=== PATIENT | female | born 2000 | race Caucasian/White ===

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

== ENCOUNTER 2019-01-13 14:32 | Emergency (ER) | payer OTHER ==
--- OUTSIDE RECORDS SUMMARY | 2019-01-13 14:34 | XMS REPORT ---
:2000 [facility] Address [address] [place] [address] Dr. King [address] [place] [id number] Care Team Providers Name Role Phone Unavailable Unavailable Unavailable Problems This patient has no known problems. Allergies, Adverse Reactions, Alerts This patient has no known allergies or adverse reactions. Medications This patient has no known medications.
[2019-01-13] MEDS ORDERED: IBUPROFEN 200 MG TAB PO ONE (15:46)
[2019-01-13] MEDS ORDERED: DEXAMETHASONE 10 MG/ML VIAL ONE (15:46)
[2019-01-13] MEDS ORDERED: DIPHENHYDRAMINE 25 MG TAB/CAP ONE (15:46)
[2019-01-13] MEDS ORDERED: IBUPROFEN 400 MG TAB ONE (15:46)
[2019-01-13] MEDS ORDERED: FAMOTIDINE 20 MG TAB ONE (15:47)
--- NOTE | 2019-01-13 16:22 | ER ---
Nurse's Notes [facility] Name: Evelin Biggs Age: 18 yrs Sex: Female : 2000 Arrival Date: 01/13/2019 Time: 14:33 Bed 28 Private MD: Diagnosis: Insect bite (nonvenomous) of unspecified part of head Presentation: 01/13 15:10 Presenting complaint: Patient states: stung by a wasp or hornet 4- days ago. applied rv ice pack and took Benadryl. today, it got worse upon waking up. could not open eyes and vision is blurry. Transition of care: patient was not received from another setting of care. Onset: The symptoms/episode began/occurred today. Anaphylaxis evaluation, reports nausea w/o vomiting. Onset of symptoms was January 13, 2019 at 08:00. Risk Assessment: Do you want to hurt yourself or someone else? Patient reports no desire to harm self or others. Initial Sepsis Screen: Does the patient meet any 2 criteria? No. Patient's initial sepsis screen is negative. Does the patient have a suspected source of infection? No. Patient's initial sepsis screen is negative. Care prior to arrival: None. 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 - Social history:: Smoking status: Patient/guardian denies using tobacco, Patient uses vape. - Ebola Screening: : No symptoms or risks identified at this time. Screenin:20 Abuse screen: Denies threats or abuse. Denies injuries from another. Nutritional rv screening: No deficits noted. Tuberculosis screening: No symptoms or risk factors identified. Fall Risk None identified. Assessment: 15:18 General: Appears in no apparent distress. uncomfortable, Behavior is calm, cooperative. rv Pain: Complains of pain in right eye. Neuro: Level of Consciousness is awake, alert, obeys commands, Oriented to person, place, time, situation. Cardiovascular: Patient's skin is warm and dry. Respiratory: Airway is patent Respiratory effort is even, Breath sounds are clear bilaterally. GI: No signs and/or symptoms were reported involving the gastrointestinal system. : No signs and/or symptoms were reported regarding the genitourinary system. EENT: Reports blurred vision in right eye. Derm: Skin is intact. Musculoskeletal: Swelling present in right eye. Vital Signs: 15:17 BP 124 / 84; Pulse 87; Resp 17; Temp 98.7; Pulse Ox 100% ; Weight 56.7 kg; Height 5 ft. rv 9 in. (175.26 cm); 16:14 BP 117 / 82; Pulse 78; Resp 17; Temp 98.6; Pulse Ox 100% ; rv 15:17 Body Mass Index 18.46 (56.70 kg, 175.26 cm) rv ED Course: 14:33 Patient arrived in ED. as 15:00 Eber Loja, CHRISTIAN is Primary Nurse. rv 15:08 Francisco Ochoa NP is PHCP. pm1 15:08 Marcus Dash MD is Attending Physician. pm1 15:12 Triage completed. rv 15:45 Bed in low position. Call light in reach. Side rails up X 1. Adult w/ patient. rv 15:45 Pulse ox on. NIBP on. rv 16:15 Arm band placed on right wrist. rv 16:15 No provider procedures requiring assistance completed. Patient did not have IV access rv during this emergency room visit. Administered Medications: 15:36 Drug: Decadron 10 mg Route: IM; Site: left deltoid; rv 16:28 Follow up: Response: Marked relief of symptoms rv 15:36 Drug: Benadryl 25 mg Route: PO; rv 16:28 Follow up: Response: Marked relief of symptoms rv 15:36 Drug: Pepcid 20 mg Route: PO; rv 16:28 Follow up: Response: Marked relief of symptoms rv 15:36 Drug: Ibuprofen 600 mg Route: PO; rv 16:28 Follow up: Response: Marked relief of symptoms rv Outcome: 16:15 Discharged to home ambulatory. rv 16:15 Condition: improved 16:19 Discharge ordered by . pm1 16:23 Discharge instructions given to patient, Instructed on discharge instructions, follow rv up and referral plans. medication usage, Demonstrated understanding of instructions, follow-up care, medications, Prescriptions given X 4. 16:28 Patient left the ED. rv Signatures: Meaghan Vera Patrick, SUPERVISOR INVENTORY MERCHANDISING SUPERVISOR INVENTORY MERCHANDISING pm1 Eber Loja, RN RN rv
--- NOTE | 2019-01-13 16:22 | EDPHYS ---
Physician Documentation [facility] Name: Evelin Biggs Age: 18 yrs Sex: Female : 2000 Arrival Date: 01/13/2019 Time: 14:33 Bed 28 Private MD: ED Physician Marcus Dash HPI: 01/13 15:20 This 18 yrs old Female presents to ER via Ambulatory with complaints of Bee pm1 Sting, Eye Swelling. 15:20 by a wasp, at home. Onset: The symptoms/episode began/occurred 4 day(s) ago. Secondary pm1 to the bite the patient reports pain, swelling. Associated signs and symptoms: Pertinent negatives: fever. Severity of symptoms: in the emergency department the symptoms are unchanged. The patient has not experienced similar symptoms in the past. The patient has not recently seen a physician. Patient with wasp sting to right side of evangelical with some swelling present to right periorbital area. 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 - Social history:: Smoking status: Patient/guardian denies using tobacco, Patient uses vape. - Ebola Screening: : No symptoms or risks identified at this time. ROS: 15:20 Constitutional: Negative for fever, chills, and weight loss. pm1 15:20 ENT: Negative for injury, pain, and discharge, Neck: Negative for injury, pain, and swelling, Cardiovascular: Negative for chest pain, palpitations, and edema, Respiratory: Negative for shortness of breath, cough, wheezing, and pleuritic chest pain, Abdomen/GI: Negative for abdominal pain, nausea, vomiting, diarrhea, and constipation, Back: Negative for injury and pain, : Negative for injury, bleeding, discharge, and swelling, MS/Extremity: Negative for injury and deformity, Skin: Negative for injury, rash, and discoloration, Neuro: Negative for headache, weakness, numbness, tingling, and seizure. 15:20 Eyes: Positive for pain, swelling, of the right eye. Exam: 15:20 Constitutional: This is a well developed, well nourished patient who is awake, alert, pm1 and in no acute distress. Head/Face: Normocephalic, atraumatic. 15:20 ENT: Nares patent. No nasal discharge, no septal abnormalities noted. Tympanic membranes are normal and external auditory canals are clear. Oropharynx with no redness, swelling, or masses, exudates, or evidence of obstruction, uvula midline. Mucous membranes moist. Neck: Trachea midline, no thyromegaly or masses palpated, and no cervical lymphadenopathy. Supple, full range of motion without nuchal rigidity, or vertebral point tenderness. No Meningismus. Chest/axilla: Normal chest wall appearance and motion. Nontender with no deformity. No lesions are appreciated. Cardiovascular: Regular rate and rhythm with a normal S1 and S2. No gallops, murmurs, or rubs. Normal PMI, no JVD. No pulse deficits. Respiratory: Lungs have equal breath sounds bilaterally, clear to auscultation and percussion. No rales, rhonchi or wheezes noted. No increased work of breathing, no retractions or nasal flaring. Back: No spinal tenderness. No costovertebral tenderness. Full range of motion. Skin: Warm, dry with normal turgor. Normal color with no rashes, no lesions, and no evidence of cellulitis. MS/ Extremity: Pulses equal, no cyanosis. Neurovascular intact. Full, normal range of motion. 15:20 Eyes: Periorbital structures: cellulitis, is not appreciated, erythema, is not appreciated, swelling, that is mild, on the right supraorbital ridge, right upper eyelid and right lower eyelid, Pupils: equal, round, and reactive to light and accomodation, Extraocular movements: intact throughout, Conjunctiva: normal, no chemosis, no exudate, no injection, no subconjunctival hemorrhage no abnormal tearing. 15:20 Neuro: Orientation: is normal, Motor: is normal, moves all fours, Gait: is steady, at a normal pace, without difficulty. Vital Signs: 15:17 BP 124 / 84; Pulse 87; Resp 17; Temp 98.7; Pulse Ox 100% ; Weight 56.7 kg; Height 5 ft. rv 9 in. (175.26 cm); 16:14 BP 117 / 82; Pulse 78; Resp 17; Temp 98.6; Pulse Ox 100% ; rv 15:17 Body Mass Index 18.46 (56.70 kg, 175.26 cm) rv MDM: 15:16 Patient medically screened. pm1 16:17 Data reviewed: vital signs. Data interpreted: Pulse oximetry: on room air is 100 %. pm1 Interpretation: normal. Counseling: I had a detailed discussion with the patient and/or guardian regarding: the historical points, exam findings, and any diagnostic results supporting the discharge/admit diagnosis, the need for outpatient follow up, to return to the emergency department if symptoms worsen or persist or if there are any questions or concerns that arise at home. 16:17 Medication response: patient with marked resolution of swelling with medications given pm1 in the ER. Patient able to open right eye without any difficulty. Administered Medications: 15:36 Drug: Decadron 10 mg Route: IM; Site: left deltoid; rv 16:28 Follow up: Response: Marked relief of symptoms rv 15:36 Drug: Benadryl 25 mg Route: PO; rv 16:28 Follow up: Response: Marked relief of symptoms rv 15:36 Drug: Pepcid 20 mg Route: PO; rv 16:28 Follow up: Response: Marked relief of symptoms rv 15:36 Drug: Ibuprofen 600 mg Route: PO; rv 16:28 Follow up: Response: Marked relief of symptoms rv Disposition: 16:54 Co-signature as Attending Physician, Marcus Dash MD. rn Disposition: 01/13/19 16:19 Discharged to Home. Impression: Insect bite (nonvenomous) of unspecified part of head. - Condition is Stable. - Discharge Instructions: Insect Bite. - Prescriptions for Benadryl 25 mg Oral Capsule - take 1 capsule by ORAL route every 6 hours As needed; 30 tablet. Pepcid 20 mg Oral Tablet - take 1 tablet by ORAL route every 12 hours for 10 days; 20 tablet. Medrol (Arslan) 4 mg Oral Tablets, Dose Pack - take 1 tablet by ORAL route as directed - follow package instructions; 1 packet. Bactrim DS 800- 160 mg Oral Tablet - take 1 tablet by ORAL route every 12 hours for 10 days; 20 tablet. - Medication Reconciliation Form, Thank You Letter, Antibiotic Education, Prescription Opioid Use form. - Follow up: Emergency Department; When: As needed; Reason: Worsening of condition. Follow up: Private Physician; When: 2 - 3 days; Reason: Recheck today's complaints, Continuance of care, Re-evaluation by your physician. - Problem is new. - Symptoms have improved. Signatures: Marcus Dash MD MD rn Francisco Ochoa NP AGRICULTURE SCIENCE TEACHER pm1 Eber Loja RN RN rv Corrections: (The following items were deleted from the chart) 16:28 16:19 01/13/2019 16:19 Discharged to Home. Impression: Insect bite (nonvenomous) of rv unspecified part of head. Condition is Stable. Forms are Medication Reconciliation Form, Thank You Letter, Antibiotic Education, Prescription Opioid Use. Follow up: Emergency Department; When: As needed; Reason: Worsening of condition. Follow up: Private Physician; When: 2 - 3 days; Reason: Recheck today's complaints, Continuance of care, Re-evaluation by your physician. Problem is new. Symptoms have improved. pm1
== END 2019-01-13 16:28 | disposition home or self-care (01) ==
LOC: ER 14:32
DX: S00.86XA Insect bite (nonvenomous) of other part of head, initial encounter (principal); F32.9 Major depressive disorder, single episode, unspecified; F41.9 Anxiety disorder, unspecified; F90.9 Attention-deficit hyperactivity disorder, unspecified type; Z88.5 Allergy status to narcotic agent
CPT/HCPCS: 96372; 99283; J1100

== ENCOUNTER 2019-04-22 22:26 | Emergency (ER) | payer OTHER ==
[2019-04-22 23:49] LABS: Urine Blood NEGATIVE (NEG); Urine Glucose NEGATIVE (NEG); Urine Protein NEGATIVE (NEG)
[2019-04-22 23:58] LABS: Absolute Lymphocytes (CBC) 2.6 K/uL (0.7-4.9); Basophils % 0.9 % (0-1.3); Hematocrit 39.5 % (36.0-45.0); Lymphocytes % 35.9 % (15.3-44.8); MPV 7.9 fL (7.6-11.3); RBC Red Blood Cell Count 4.69 M/uL (3.86-4.86)
[2019-04-23 00:03] LABS: Barbiturates NEGATIVE (NEGATIVE); Benzodiazepines NEGATIVE (NEGATIVE); Cocaine NEGATIVE (NEGATIVE); METHAMPHETAM NEGATIVE (NEGATIVE); Methadone NEGATIVE (NEGATIVE); Opiates NEGATIVE (NEGATIVE); Phencyclidine NEGATIVE (NEGATIVE); THC Cannibis NEGATIVE (NEGATIVE)
[2019-04-23 00:09] LABS: Protime INR 1.05
[2019-04-23 00:18] LABS: ALT/SGPT 23 U/L (12-78); AST/SGOT 16 U/L (15-37); Albumin 4.6 g/dL (3.4-5.0); Alkaline Phosphatase 54 U/L (45-117); BUN Blood Urea Nitrogen 6 mg/dL (7-18); Bicarbonate 25 mmol/L (21-32); Bilirubin Direct 0.3 mg/dL (0-0.2); Bilirubin Total 1.4 mg/dL (0.2-1.0); CKMB Creatine Kinase MB < 1.0 ng/mL (0.3-3.6); Creatine Phosphokinase 71 U/L (26-192); Glucose Level 89 mg/dL (74-106); Lipase 135 U/L (73-393); Magnesium 2.2 mg/dL (1.8-2.4); Potassium 3.6 mmol/L (3.5-5.1); Protein, Total 7.5 g/dL (6.4-8.2); Sodium Level 141 mmol/L (136-145); Troponin (Emerg Dept Use Only) < 0.02 ng/mL (0.0-0.045)
[2019-04-23] MEDS ORDERED: KETOROLAC 30 MG/ML INJ ONE (00:31)
--- NOTE | 2019-04-23 01:13 | ER ---
Nurse's Notes [facility] Name: Evelin Biggs Age: 18 yrs Sex: Female : 2000 Arrival Date: 04/22/2019 Time: 22:29 Bed 7 Private MD: Diagnosis: Syncope and collapse Presentation: 04/22 22:41 Presenting complaint: Patient states: that he was lying down and started feeling weak. fc When she got up she started to have a headache and fainted. Now having photophobia but denies any nausea or vomiting. Transition of care: patient was not received from another setting of care. Onset of symptoms was April 22, 2019 at 21:30. Risk Assessment: Do you want to hurt yourself or someone else? Patient reports no desire to harm self or others. Initial Sepsis Screen: Does the patient meet any 2 criteria? No. Patient's initial sepsis screen is negative. Does the patient have a suspected source of infection? No. Patient's initial sepsis screen is negative. Care prior to arrival: None. 22:41 Method Of Arrival: Ambulatory 22:41 Acuity: CALI 3 fc Triage Assessment: 22:59 Headache History: Denies prior headaches. General: Appears in no apparent distress. ak1 Pain: Complains of pain in forehead. 04/23 01:08 Pain: Pain began yesterday with worse headache tonight. 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 - Social history:: Smoking status: Patient/guardian denies using tobacco, Patient/guardian denies using alcohol, street drugs. - Ebola Screening: : Patient negative for fever greater than or equal to 101.5 degrees Fahrenheit, and additional compatible Ebola Virus Disease symptoms Patient denies exposure to infectious person Patient denies travel to an Ebola-affected area in the 21 days before illness onset. Screenin:41 Abuse screen: Denies threats or abuse. Nutritional screening: No deficits noted. fc Tuberculosis screening: No symptoms or risk factors identified. Fall Risk None identified. Assessment: 22:54 Reassessment: pt taken to restroom, unable to provide sample at this time.. General: ak1 Appears in no apparent distress. Behavior is calm, cooperative, flat. Pain: Complains of pain in forehead. Neuro: Level of Consciousness is awake, alert, obeys commands, Oriented to person, place, time, situation, Appropriate for age Moves all extremities. Full function Gait is pt c/o generalized weakness since yesterday with fatigue increased today. . Speech is normal, Facial symmetry appears normal. Cardiovascular: No deficits noted. Respiratory: No deficits noted. GI: No signs and/or symptoms were reported involving the gastrointestinal system. : Reports pt on day 2 of cycle. EENT: No signs and/or symptoms were reported regarding the EENT system. Derm: No signs and/or symptoms reported regarding the dermatologic system. Musculoskeletal: Range of motion: intact in all extremities, pt c/o generalized weakness an fatigue stated yesterday, worse today. pt c/o headache tonight at forehead area only. pt denies fever, SOB, N/V/D. 23:57 Reassessment: Patient appears in no apparent distress at this time. No changes from ak1 previously documented assessment. pt in CT. Vital Signs: 22:41 BP 151 / 99; Pulse 75; Resp 18; Temp 99.0(O); Pulse Ox 100% on R/A; Weight 53.52 kg fc (R); Height 5 ft. 9 in. (175.26 cm) (R); Pain 8/10; 23:12 BP 133 / 95; Pulse 72; Pulse Ox 100% on R/A; ak1 04/23 01:07 BP 124 / 83; Pulse 65; Resp 16; Pulse Ox 100% on R/A; ak1 04/22 22:41 Body Mass Index 17.43 (53.52 kg, 175.26 cm) Kian Coma Score: 01:59 Eye Response: spontaneous(4). Verbal Response: oriented(5). Motor Response: obeys tw4 commands(6). Total: 15. ED Course: 04/22 22:29 Patient arrived in ED. cl3 22:41 Arm band placed on Patient placed in an exam room, on a stretcher. fc 22:41 Patient has correct armband on for positive identification. Placed in gown. Bed in low fc position. Call light in reach. 22:43 Lucila Payan, RN is Primary Nurse. ak1 22:50 Glenn Islas MD is Attending Physician. tw4 22:51 Triage completed. fc 22:54 Pulse ox on. NIBP on. Door closed. Lights dimmed. Warm blanket given. ak1 23:53 Inserted saline lock: 20 gauge in right antecubital area, using aseptic technique. sc Blood collected. 1007 00:25 CT Head Brain wo Cont In Process Unspecified. EDMS 01:29 No provider procedures requiring assistance completed. IV discontinued, intact, ak1 bleeding controlled, No redness/swelling at site. Pressure dressing applied. Administered Medications: 00:36 Drug: TORadol 30 mg Route: IVP; Site: right antecubital; don 01:29 Follow up: Response: No adverse reaction; Pain is unchanged, physician notified ak1 Outcome: 01:12 Discharge ordered by . tw4 01:30 Discharged to home ambulatory, with friend. ak1 01:30 Condition: improved 01:30 Discharge instructions given to patient, Instructed on discharge instructions, follow up and referral plans. no drinking with medication, no driving heavy equipment, medication usage, Demonstrated understanding of instructions, follow-up care, medications, Prescriptions given X 1. 01:30 Patient left the ED. ak1 Signatures: Dispatcher [employer] EDPR Leni Romero RN RN Amena Madrigal RN RN Lucila Payan, RN Daphnie Wheeler sc Glenn Islas MD MD Sherif Paris 3
--- NOTE | 2019-04-23 01:14 | EDPHYS ---
Physician Documentation [facility] Name: Evelin Biggs Age: 18 yrs Sex: Female : 2000 Arrival Date: 04/22/2019 Time: 22:29 Bed 7 Private MD: ED Physician Glenn Islas HPI: 04/23 00:03 This 18 yrs old Female presents to ER via Ambulatory with complaints of tw4 Headache, Weakness. 00:03 The patient complains of pain to the forehead. Onset: The symptoms/episode tw4 began/occurred today. Associated signs and symptoms: The patient has no apparent associated signs or symptoms. 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 - Social history:: Smoking status: Patient/guardian denies using tobacco, Patient/guardian denies using alcohol, street drugs. - Ebola Screening: : Patient negative for fever greater than or equal to 101.5 degrees Fahrenheit, and additional compatible Ebola Virus Disease symptoms Patient denies exposure to infectious person Patient denies travel to an Ebola-affected area in the 21 days before illness onset. ROS: 04/23 00:47 Constitutional: Negative for fever, chills, and weight loss, Eyes: Negative for injury, tw4 pain, redness, and discharge, Cardiovascular: Negative for chest pain, palpitations, and edema, Respiratory: Negative for shortness of breath, cough, wheezing, and pleuritic chest pain, Abdomen/GI: Negative for abdominal pain, nausea, vomiting, diarrhea, and constipation, Back: Negative for injury and pain, MS/Extremity: Negative for injury and deformity, Skin: Negative for injury, rash, and discoloration. Neuro: Positive for Vital Signs: 04/22 22:41 BP 151 / 99; Pulse 75; Resp 18; Temp 99.0(O); Pulse Ox 100% on R/A; Weight 53.52 kg fc (R); Height 5 ft. 9 in. (175.26 cm) (R); Pain 8/10; 23:12 BP 133 / 95; Pulse 72; Pulse Ox 100% on R/A; ak1 04/23 01:07 BP 124 / 83; Pulse 65; Resp 16; Pulse Ox 100% on R/A; ak1 04/22 22:41 Body Mass Index 17.43 (53.52 kg, 175.26 cm) Kian Coma Score: 01:59 Eye Response: spontaneous(4). Verbal Response: oriented(5). Motor Response: obeys tw4 commands(6). Total: 15. MDM: 04/22 22:50 Patient medically screened. tw4 04/23 01:59 Data reviewed: vital signs, nurses notes. Data interpreted: Pulse oximetry: tw4 Interpretation: normal. Counseling: I had a detailed discussion with the patient and/or guardian regarding: the historical points, exam findings, and any diagnostic results supporting the discharge/admit diagnosis. Medication response: Toradol relieved patient's pain. The symptoms have resolved. Response to treatment: and as a result, I will discharge patient. Special discussion: I discussed with the patient/guardian in detail that at this point there is no indication for admission to the hospital. It is understood, however, that if the symptoms persist or worsen the patient needs to return immediately for re-evaluation. 04/22 23:43 Order name: Urine Dipstick--Ancillary (enter results); Complete Time: 00:29 em1 04/23 01:15 Interpretation: Normal except: UESTR TRACE. tw4 04/22 23:43 Order name: Urine --Ancillary (enter results); Complete Time: 00:29 em1 04/22 23:45 Order name: Basic Metabolic Panel; Complete Time: 00:29 tw4 04/23 01:15 Interpretation: Normal except: CL 108; BUN 6; GFR 81. tw4 04/22 23:45 Order name: CBC with Diff; Complete Time: 00:29 tw4 04/23 01:16 Interpretation: Normal except: WBC 7.3; PLT 253. tw4 04/22 23:45 Order name: Ckmb; Complete Time: 00:29 tw4 04/22 23:45 Order name: CPK; Complete Time: 00:29 4 04/22 23:45 Order name: CT Head Brain wo Cont 04/22 23:45 Order name: Hepatic Function; Complete Time: 00:29 4 04/23 01:16 Interpretation: Normal except: BILIT 1.4; BILID 0.3. 04/22 23:45 Order name: Lipase; Complete Time: 00:29 4 04/22 23:45 Order name: Magnesium; Complete Time: 00:29 04/22 23:45 Order name: Protime (+inr); Complete Time: 00:29 4 04/22 23:45 Order name: Ptt, Activated; Complete Time: 00:29 04/22 23:45 Order name: Troponin (emerg Dept Use Only); Complete Time: 00:29 04/22 23:45 Order name: Urine Drug Screen; Complete Time: 00:29 4 04/22 23:45 Order name: EKG; Complete Time: 23:46 04/22 23:45 Order name: Cardiac monitoring; Complete Time: 23:57 04/22 23:45 Order name: EKG - Nurse/Tech; Complete Time: 23:57 04/22 23:45 Order name: IV Saline Lock; Complete Time: 23:52 04/22 23:45 Order name: Labs collected and sent; Complete Time: 23:52 04/22 23:45 Order name: NPO; Complete Time: 23:46 4 04/22 23:45 Order name: O2 Per Protocol; Complete Time: 23:46 04/22 23:45 Order name: O2 Sat Monitoring; Complete Time: 23:46 04/22 23:45 Order name: Urine Dipstick-Ancillary (obtain specimen); Complete Time: 23:46 tw4 EC/06 23:59 Rate is 70 beats/min. Rhythm is regular. QRS Gillespie is Normal. CO interval is normal. QRS tw4 interval is normal. QT interval is normal. No Q waves. T waves are Normal. No ST changes noted. Clinical impression: NSR w/ Non-specific ST/T Changes. Interpreted by me. Reviewed by me. Administered Medications: 04/23 00:36 Drug: TORadol 30 mg Route: IVP; Site: right antecubital; bb 01:29 Follow up: Response: No adverse reaction; Pain is unchanged, physician notified ak1 Disposition: 04/23/19 01:12 Discharged to Home. Impression: Syncope and collapse. - Condition is Stable. - Discharge Instructions: General Headache Without Cause, Near-Syncope, Vasovagal Syncope, Adult. - Prescriptions for Fiorinal 50- 325-40 mg Oral Capsule - take 1 capsule by ORAL route every 4 hours As needed - not to exceed 6 capsules per day; 20 capsule. - Medication Reconciliation Form, Thank You Letter, Antibiotic Education, Prescription Opioid Use form. - Follow up: Private Physician; When: Upon discharge from the Emergency Department; Reason: If symptoms return, Recheck today's complaints, Continuance of care. - Problem is new. - Symptoms have improved. Signatures: Dispatcher [employer] EDMS Leni Romero RN RN fc Amena Madrigal RN RN Lucila Shell RN RN ak1 Michael Spivey PA PA cp Wadley, Terrence, MD MD tw4 Corrections: (The following items were deleted from the chart) 01:30 01:12 04/23/2019 01:12 Discharged to Home. Impression: Syncope and collapse. Condition ak1 is Stable. Forms are Medication Reconciliation Form, Thank You Letter, Antibiotic Education, Prescription Opioid Use. Follow up: Private Physician; When: Upon discharge from the Emergency Department; Reason: If symptoms return, Recheck today's complaints, Continuance of care. Problem is new. Symptoms have improved. tw4
[2019-04-23 02:11] VITALS: TEMP 99; O2SAT 100
[2019-04-23 02:14] VITALS: BP 124/83
--- NOTE | 2019-04-23 09:42 | EKG ---
Test Date: 2019-04-22 Test Time: 23:54:18 Taxonomist: ALMA ROSA MEASUREMENT RESULTS: Intervals: Rate: 70 WA: 102 QRSD: 76 QT: 370 QTc: 399 [place]: P: 11 WA: 102 QRS: 54 T: 56 INTERPRETIVE STATEMENTS: Sinus rhythm with short WA normal ECG No previous ECG available for comparison Electronically Signed On 04-23-19 09:42:17 CDT by Maciel Monge
--- NOTE | 2019-04-24 15:31 | RAD REPORT ---
EXAM DESCRIPTION: CT - Head Brain Wo Cont - 04/23/2019 3:53 am CLINICAL HISTORY: SYNCOPE COMPARISON: CT head without contrast 06/24/2014. TECHNIQUE: Axial [address] imaging of the brain. Reformatted coronal and sagittal images ob tained. This examination was performed according to our departmental dose optimization program, which include s automated exposure control, adjustment of the mA and/or kV according to patient size and/or use of iterative reconstruction technique. FINDINGS: Normal ventricle size and contour. Extra-axial fluid spaces appear normal. Carpenter-white yaniv er differentiation is maintained. No edema, mass, hemorrhage, or midline shift. Normal appearance of the corpus callosum and midbrain. Normal cerebellum, vermis, fourth ventricle, prepontine cisterns. N ormal sella contents. The globes appear intact. Clear paranasal sinuses and mastoid air cells. Intact skull base and calvar ium. Normal scalp soft tissues. IMPRESSION: 1. Negative CT brain. Electronically signed by: Cristine Noonan DO 04/23/2019 12:29 AM CDT Due to temporary technical issues with the PACS/Fluency reporting system, reports are being signed by the in house radiologist as a courtesy to ensure prompt reporting. The interpreting radiologist is f ully responsible for the content of the report.
== END 2019-04-23 01:30 | disposition home or self-care (01) ==
LOC: ER 22:26
DX: R55 Syncope and collapse (principal); F32.9 Major depressive disorder, single episode, unspecified; F41.9 Anxiety disorder, unspecified; F90.9 Attention-deficit hyperactivity disorder, unspecified type; Z88.5 Allergy status to narcotic agent
CPT/HCPCS: 36415; 70450; 80048; 80076; 80307; 81003; 81025; 82550; 82553; 83690; 83735; 84484; 85025; 85610; 85730; 93005; 96374; 99284

== ENCOUNTER 2019-04-26 18:13 | Emergency (ER) | payer OTHER ==
[2019-04-26] MEDS ORDERED: NA CHLORIDE 0.9% 1,000 ML ONE (19:30)
[2019-04-26] MEDS ORDERED: FENTANYL CITR 100 MCG/2 ML ONE (19:49)
[2019-04-26 19:59] LABS: Basophils % 0.7 % (0-1.3); Hematocrit 39.7 % (36.0-45.0); Lymphocytes % 29.3 % (15.3-44.8); MPV 8.2 fL (7.6-11.3); RBC Red Blood Cell Count 4.63 M/uL (3.86-4.86)
[2019-04-26 20:04] LABS: Urine Blood 2+ (NEG); Urine Glucose NEGATIVE (NEG); Urine Protein NEGATIVE (NEG)
[2019-04-26 20:07] LABS: Albumin 4.4 g/dL (3.4-5.0); Bilirubin Direct 0.2 mg/dL (0-0.2); Bilirubin Total 0.9 mg/dL (0.2-1.0); Potassium 3.7 mmol/L (3.5-5.1); Protein, Total 7.7 g/dL (6.4-8.2)
--- NOTE | 2019-04-26 20:14 | RAD REPORT ---
EXAM DESCRIPTION: CT - Abdomen Pelvis W Contrast - 04/26/2019 8:00 pm CLINICAL HISTORY: ABD PAIN COMPARISON: February 2014 TECHNIQUE: Biphasic, helical CT imaging of the abdomen and pelvis was performed following 100 ml non -ionic IV contrast. Oral contrast was given. All CT scans are performed using dose optimization technique as appropriate and may include automated exposure control or mA/KV adjustment according to patient size. FINDINGS: Pulmonary nodules in the posterior right lung base are unchanged from 2014. No pericardial effusion. The liver, spleen, and pancreas show no suspicious findings. Gallbladder and biliary tree are also wi thout suspicious finding. Symmetric renal function is seen with no hydronephrosis or suspicious renal mass. No pyelonephritis o r acute parenchymal process. No bladder abnormalities. No adrenal abnormalities. No dilated bowel loops or bowel wall thickening. No free air, free fluid or inflammatory stranding. No hernia, mass or bulky lymphadenopathy. Uterus and ovaries show no suspicious findings. No suspicious bony findings. IMPRESSION: Contrast enhanced CT abdomen and pelvis showing no significant or suspicious finding. Above detailed findings are not substantially different from comparison.
--- NOTE | 2019-04-26 21:24 | ER ---
Nurse's Notes [facility] Name: Evelin Biggs Age: 18 yrs Sex: Female : 2000 Arrival Date: 04/26/2019 Time: 18:14 Bed 20 Private MD: Raegan Michelle C Diagnosis: Headache;Generalized abdominal pain Presentation: 04/26 18:44 Presenting complaint: Patient states: sent by Dr Michelle for LUQ pain x3 weeks and sv migraine x 1 week, c/o generalized weakness, fatigue. Transition of care: patient was not received from another setting of care. Onset of symptoms was 2018. Risk Assessment: Do you want to hurt yourself or someone else? Patient reports no desire to harm self or others. Care prior to arrival: None. 18:44 Method Of Arrival: Ambulatory sv 18:44 Acuity: CALI 3 sv 19:12 Initial Sepsis Screen: Does the patient meet any 2 criteria? No. Patient's initial sepsis screen is negative. Does the patient have a suspected source of infection? Yes: Acute abdominal pain. Triage Assessment: 18:44 General: Appears in no apparent distress. uncomfortable, slender, Behavior is calm, sv cooperative, appropriate for age. General: Reports fatigue for >3 days. Pain: Complains of pain in face and left upper quadrant. Neuro: Level of Consciousness is awake, alert, obeys commands, Gait is steady. Respiratory: Respiratory effort is even, unlabored. GI: Reports upper abdominal pain. 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 - Social history:: Smoking status: Patient/guardian denies using tobacco. - Ebola Screening: : Patient negative for fever greater than or equal to 101.5 degrees Fahrenheit, and additional compatible Ebola Virus Disease symptoms Patient denies exposure to infectious person. Screenin:12 Abuse screen: Denies threats or abuse. Denies injuries from another. Nutritional screening: No deficits noted. Tuberculosis screening: No symptoms or risk factors identified. Fall Risk None identified. Assessment: 19:24 General: Appears in no apparent distress. Pain: Complains of pain in left upper wh quadrant Pain does not radiate. Pain currently is 10 out of 10 on a pain scale. Quality of pain is described as stabbing, Pain began 2-3 weeks ago Is intermittent. Neuro: Level of Consciousness is awake, alert, obeys commands, Reports headache in right frontal area. Cardiovascular: Heart tones S1 S2. Respiratory: Airway is patent Respiratory effort is even, unlabored, Respiratory pattern is regular, symmetrical, Breath sounds are clear bilaterally. GI: Abdomen is flat, non-distended, Bowel sounds present X 4 quads. Abd is soft Abdomen is tender to palpation in left upper quadrant. : No signs and/or symptoms were reported regarding the genitourinary system. EENT: No signs and/or symptoms were reported regarding the EENT system. Derm: Skin is intact, is healthy with good turgor, Skin is pink, warm \T\ dry. normal. Musculoskeletal: Circulation, motion, and sensation intact. 20:40 Reassessment: Patient appears in no apparent distress at this time. No changes from previously documented assessment. Patient and/or family updated on plan of care and expected duration. Pain level reassessed. Patient is alert, oriented x 3, equal unlabored respirations, skin warm/dry/pink. 21:45 Reassessment: Patient appears in no apparent distress at this time. No changes from previously documented assessment. Patient and/or family updated on plan of care and expected duration. Pain level reassessed. Patient is alert, oriented x 3, equal unlabored respirations, skin warm/dry/pink. Vital Signs: 18:47 BP 130 / 90; Pulse 78; Resp 16; Temp 98.6; Pulse Ox 99% ; Weight 52.16 kg; Height 5 ft. sv 9 in. (175.26 cm); Pain 9/10; 19:27 BP 118 / 80; Pulse 67; Resp 18; Pulse Ox 100% on R/A; wh 21:00 BP 119 / 72; Pulse 64; Resp 18; Pulse Ox 100% on R/A; wh 18:47 Body Mass Index 16.98 (52.16 kg, 175.26 cm) sv ED Course: 18:14 Patient arrived in ED. as 18:15 Raegan Michelle MD is Private Physician. as 18:45 Triage completed. sv 18:48 Arm band placed on. sv 19:11 Alexy Arndt is Primary Nurse. wh 19:13 Patient has correct armband on for positive identification. Placed in gown. Bed in low wh position. Call light in reach. Side rails up X 1. Pulse ox on. NIBP on. 19:19 Tahmina Armstrong FNP-C is PHCP. snw 19:19 Marcus Dash MD is Attending Physician. snw 19:40 Inserted saline lock: 22 gauge in left antecubital area, using aseptic technique. Blood wh collected. 20:00 CT Abd/Pelvis - IV Contrast Only In Process Unspecified. EDMS 20:01 CT completed. Patient tolerated procedure well. Patient moved back from CT. vm2 21:22 Raegan Michelle MD is Referral Physician. snw 21:24 Ultrasound completed. Patient tolerated well. hr 21:24 US Abdomen Limited In Process Unspecified. EDMS 22:00 No provider procedures requiring assistance completed. IV discontinued, intact, wh bleeding controlled, No redness/swelling at site. Administered Medications: 19:40 Drug: NS 0.9% 1000 ml Route: IV; Rate: 1 bolus; Site: right antecubital; 21:37 Follow up: Response: No adverse reaction; IV Status: Completed infusion 19:50 Drug: fentaNYL (PF) 50 mcg {Note: Rass score 0.} Route: IVP; Site: left antecubital; [facility] 21:36 Follow up: Response: No adverse reaction; Pain is decreased; RASS: Alert and Calm (0) 21:36 Drug: ProTONIX 40 mg {Note: RASS 0.} Route: IVP; Site: left antecubital; 21:58 Follow up: Response: No adverse reaction 21:51 Drug: Topamax 25 mg Route: PO; 21:58 Follow up: Response: No adverse reaction Outcome: 21:23 Discharge ordered by . snw 22:00 Discharged to home ambulatory. 22:00 Condition: good 22:00 Discharge instructions given to patient, Instructed on discharge instructions, follow up and referral plans. medication usage, POC ABD pain and Headache Demonstrated understanding of instructions, follow-up care, medications, POC Prescriptions given X 2. 22:01 Patient left the ED. Signatures: Dispatcher [employer] Lea Albrecht, Tahmina Lee RN, MEDICAL OFFICE RECEPTIONIST ASSISTANT-C MEDICAL OFFICE RECEPTIONIST ASSISTANT-Csnw Jesica Mendoza Amelia as Bryson, James, RN RN jb4 Micki Conde 2 Alexy Arndt
--- NOTE | 2019-04-26 21:24 | EDPHYS ---
Physician Documentation [facility] Name: Evelin Biggs Age: 18 yrs Sex: Female : 2000 Arrival Date: 04/26/2019 Time: 18:14 Bed 20 Private MD: Raegan Michelle C ED Physician Marcus Dash HPI: 04/26 19:52 This 18 yrs old Female presents to ER via Ambulatory with complaints of snw Abdominal Pain, Headache. 19:52 The patient presents with abdominal pain that is diffuse. Onset: The symptoms/episode snw began/occurred 3 week(s) ago, and became worse and became persistent. The symptoms do not radiate. Associated signs and symptoms: Pertinent positives: nausea, 20 # wt loss. The symptoms are described as constant, steady. Severity of pain: At its worst the pain was moderate severe in the emergency department the pain is unchanged. It is unknown whether or not the patient has had similar symptoms in the past. The patient has been recently seen by a physician: The patient has been recently seen at the [facility] Emergency Department, last week, for similar complaints Saw Dr. Michelle today, would like pt to have abd ct and us.. 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 - Social history:: Smoking status: Patient/guardian denies using tobacco. - Ebola Screening: : Patient negative for fever greater than or equal to 101.5 degrees Fahrenheit, and additional compatible Ebola Virus Disease symptoms Patient denies exposure to infectious person. ROS: 19:51 Constitutional: Negative for fever, chills, and weight loss, Eyes: Negative for injury, snw pain, redness, and discharge, ENT: Negative for injury, pain, and discharge, Neck: Negative for injury, pain, and swelling, Cardiovascular: Negative for chest pain, palpitations, and edema, Respiratory: Negative for shortness of breath, cough, wheezing, and pleuritic chest pain, Back: Negative for injury and pain, : Negative for injury, bleeding, discharge, and swelling, MS/Extremity: Negative for injury and deformity, Skin: Negative for injury, rash, and discoloration. 19:51 Abdomen/GI: Positive for abdominal pain, nausea. 19:51 Neuro: Positive for headache. Exam: 19:50 Constitutional: This is a well developed, well nourished patient who is awake, alert, snw and in no acute distress. Head/Face: Normocephalic, atraumatic. Eyes: Pupils equal round and reactive to light, extra-ocular motions intact. Lids and lashes normal. Conjunctiva and sclera are non-icteric and not injected. Cornea within normal limits. Periorbital areas with no swelling, redness, or edema. ENT: Nares patent. No nasal discharge, no septal abnormalities noted. Tympanic membranes are normal and external auditory canals are clear. Oropharynx with no redness, swelling, or masses, exudates, or evidence of obstruction, uvula midline. Mucous membranes moist. Neck: Trachea midline, no thyromegaly or masses palpated, and no cervical lymphadenopathy. Supple, full range of motion without nuchal rigidity, or vertebral point tenderness. No Meningismus. Chest/axilla: Normal chest wall appearance and motion. Nontender with no deformity. No lesions are appreciated. Cardiovascular: Regular rate and rhythm with a normal S1 and S2. No gallops, murmurs, or rubs. Normal PMI, no JVD. No pulse deficits. Respiratory: Lungs have equal breath sounds bilaterally, clear to auscultation and percussion. No rales, rhonchi or wheezes noted. No increased work of breathing, no retractions or nasal flaring. Back: No spinal tenderness. No costovertebral tenderness. Full range of motion. Skin: Warm, dry with normal turgor. Normal color with no rashes, no lesions, and no evidence of cellulitis. MS/ Extremity: Pulses equal, no cyanosis. Neurovascular intact. Full, normal range of motion. Neuro: Awake and alert, GCS 15, oriented to person, place, time, and situation. Cranial nerves II-XII grossly intact. Motor strength 5/5 in all extremities. Sensory grossly intact. Cerebellar exam normal. Normal gait. Psych: Awake, alert, with orientation to person, place and time. Behavior, mood, and affect are within normal limits. 19:50 Abdomen/GI: Inspection: abdomen appears normal, Bowel sounds: normal, Palpation: severe abdominal tenderness, in all quadrants, tenderness to percussion, is appreciated in the right upper quadrant and left upper quadrant. Vital Signs: 18:47 BP 130 / 90; Pulse 78; Resp 16; Temp 98.6; Pulse Ox 99% ; Weight 52.16 kg; Height 5 ft. sv 9 in. (175.26 cm); Pain 9/10; 19:27 BP 118 / 80; Pulse 67; Resp 18; Pulse Ox 100% on R/A; wh 21:00 BP 119 / 72; Pulse 64; Resp 18; Pulse Ox 100% on R/A; wh 18:47 Body Mass Index 16.98 (52.16 kg, 175.26 cm) sv MDM: 19:47 Patient medically screened. snw 19:49 Data reviewed: vital signs, nurses notes. Data interpreted: Pulse oximetry: on room air snw is 100 %. Interpretation: normal. Counseling: I had a detailed discussion with the patient and/or guardian regarding: the historical points, exam findings, and any diagnostic results supporting the discharge/admit diagnosis, the presence of at least one elevated blood pressure reading (>120/80) during this emergency department visit, lab results. ED course: Hx of fundiplication. Pt family hx of Neeson syndrome. 21:29 Physician consultation: A Viviana RAMSEY was called at 21:00, was contacted at 21:20, snw regarding patient's condition, would like medications started, topamax 25mg po q hs, protonix 40mg po 30 min prior to breakfast daily, PCP appt next week. 04/26 19:27 Order name: Basic Metabolic Panel; Complete Time: 20:10 snw 04/26 19:27 Order name: CBC with Diff; Complete Time: 20:10 snw 04/26 19:27 Order name: Creatinine for Radiology; Complete Time: 20:10 snw 04/26 19:27 Order name: Hepatic Function; Complete Time: 20:10 snw 04/26 19:27 Order name: Lipase; Complete Time: 20:10 snw 04/26 19:50 Order name: Urine Dipstick--Ancillary (enter results); Complete Time: 20:10 em1 04/26 19:27 Order name: CT Abd/Pelvis - IV Contrast Only; Complete Time: 20:52 snw 04/26 19:50 Order name: Urine --Ancillary (enter results); Complete Time: 20:10 em1 04/26 19:55 Order name: Add On-Lab snw 04/26 20:00 Order name: Thyroid Stimulating Hormone; Complete Time: 20:52 EDMS 04/26 20:53 Order name: US Abdomen Limited snw 04/26 19:27 Order name: Labs collected and sent; Complete Time: 19:40 snw Administered Medications: 19:40 Drug: NS 0.9% 1000 ml Route: IV; Rate: 1 bolus; Site: right antecubital; 21:37 Follow up: Response: No adverse reaction; IV Status: Completed infusion 19:50 Drug: fentaNYL (PF) 50 mcg {Note: Rass score 0.} Route: IVP; Site: left antecubital; [facility] 21:36 Follow up: Response: No adverse reaction; Pain is decreased; RASS: Alert and Calm (0) 21:36 Drug: ProTONIX 40 mg {Note: RASS 0.} Route: IVP; Site: left antecubital; 21:58 Follow up: Response: No adverse reaction 21:51 Drug: Topamax 25 mg Route: PO; 21:58 Follow up: Response: No adverse reaction Disposition: 22:27 Co-signature as Attending Physician, Marcus Dash MD. rn Disposition: 04/26/19 21:23 Discharged to Home. Impression: Headache, Generalized abdominal pain. - Condition is Stable. - Discharge Instructions: Abdominal Pain, Adult, General Headache Without Cause. - Prescriptions for Topamax 25 mg Oral tablet - take 1 tablet by ORAL route At bedtime; 30 tablet. Protonix 40 mg Oral Tablet, Delayed Release (E.C.) - take 1 tablet by ORAL route once daily 30 min prior to breakfast; 30 tablet. - Work release form, Medication Reconciliation Form, Thank You Letter, Antibiotic Education, Prescription Opioid Use form. - Follow up: Raegan Michelle MD; When: 1 week; Reason: Recheck today's complaints, Continuance of care, Re-evaluation by your physician. Follow up: Emergency Department; When: As needed; Reason: Worsening of condition. Signatures: Dispatcher [employer] Lea Albrecht, RN RN Tahmina Aragon, MARINE UNDERWRITER-C MARINE UNDERWRITER-Csnw Marcus Dash MD MD rn Bryson, James RN CHRISTIAN jbAlexy Prince Corrections: (The following items were deleted from the chart) 22:01 21:23 04/26/2019 21:23 Discharged to Home. Impression: Headache; Generalized abdominal wh pain. Condition is Stable. Forms are Medication Reconciliation Form, Thank You Letter, Antibiotic Education, Prescription Opioid Use. Follow up: A Michelle; When: 1 week; Reason: Recheck today's complaints, Continuance of care, Re-evaluation by your physician. Follow up: Emergency Department; When: As needed; Reason: Worsening of condition. snw
[2019-04-26] MEDS ORDERED: PANTOPRAZOLE 40 MG INJ ONE (21:31)
[2019-04-26] MEDS ORDERED: TOPIRAMATE 25 MG TAB ONE (21:44)
[2019-04-26 22:19] VITALS: TEMP 98.6
[2019-04-26 22:20] VITALS: O2SAT 100
[2019-04-26 22:21] VITALS: BP 119/72
--- NOTE | 2019-04-27 08:02 | RAD REPORT ---
EXAM DESCRIPTION: US - Abdomen Exam Limited - 04/26/2019 9:23 pm CLINICAL HISTORY: Abdominal pain. COMPARISON: None. FINDINGS: The gallbladder wall is not thickened. A gallstone is not seen. The biliary tree is normal caliber. IMPRESSION: Unremarkable gallbladder ultrasound.
== END 2019-04-26 22:01 | disposition home or self-care (01) ==
LOC: ER 18:13
DX: R10.84 Generalized abdominal pain (principal)
CPT/HCPCS: 96361; 85025; 80048; 36415; 81025; 80076; 84443; 81003; 83690; 74177; 76705; 96375; 96374; 99284; Q9967; C9113; J3010; J7030

== ENCOUNTER 2019-08-03 21:18 | Emergency (ER) | payer OTHER ==
--- OUTSIDE RECORDS SUMMARY | 2019-08-03 21:20 | XMS REPORT ---
:2000 [facility] Address [address] [place] [address] Dr. King [address] [place] [id number] Care Team Providers Name Role Phone Unavailable Unavailable Unavailable Problems This patient has no known problems. Allergies, Adverse Reactions, Alerts This patient has no known allergies or adverse reactions. Medications This patient has no known medications.
[2019-08-04 00:43] LABS: Urine Blood NEGATIVE (NEG); Urine Glucose NEGATIVE (NEG); Urine Protein 2+ (NEG); Urine Specific Gravity 1.025 (1.005-1.030)
[2019-08-04 00:44] LABS: Urine Specific Gravity 1.025 (1.005-1.030)
[2019-08-04 01:28] LABS: ALT/SGPT 18 U/L (12-78); AST/SGOT 12 U/L (15-37); Albumin 4.1 g/dL (3.4-5.0); Alkaline Phosphatase 72 U/L (45-117); BUN Blood Urea Nitrogen 11 mg/dL (7-18); Bicarbonate 28 mmol/L (21-32); Bilirubin Direct 0.3 mg/dL (0-0.2); Bilirubin Total 1.1 mg/dL (0.2-1.0); Glucose Level 92 mg/dL (74-106); Lipase 154 U/L (73-393); Potassium 3.7 mmol/L (3.5-5.1); Protein, Total 7.2 g/dL (6.4-8.2); Sodium Level 142 mmol/L (136-145)
[2019-08-04 01:34] LABS: Absolute Lymphocytes (CBC) 2.2 K/uL (0.7-4.9); Basophils % 1.1 % (0-1.3); Hematocrit 37.2 % (36.0-45.0); MPV 8.2 fL (7.6-11.3); RBC Red Blood Cell Count 4.43 M/uL (3.86-4.86)
--- NOTE | 2019-08-04 02:58 | ER ---
Nurse's Notes [facility] Name: Evelin Biggs Age: 18 yrs Sex: Female : 2000 Arrival Date: 08/03/2019 Time: 21:20 Bed 26 Private MD: Diagnosis: Abdominal and pelvic pain Presentation: 08/03 21:46 Presenting complaint: Patient states: "I've been on my period for over a month, so I aj1 went to Dr. Lopez and he said that he felt a cyst on my ovary, so I've been having really bad pain and he said that if it gets worse to come in" Patient reports right lower abdominal pain. Reports N/V. Denies diarrhea. Transition of care: patient was not received from another setting of care. Onset of symptoms was August 03, 2019. Risk Assessment: Do you want to hurt yourself or someone else? Patient reports no desire to harm self or others. Initial Sepsis Screen: Does the patient meet any 2 criteria? No. Patient's initial sepsis screen is negative. Does the patient have a suspected source of infection? No. Patient's initial sepsis screen is negative. Care prior to arrival: None. 21:46 Method Of Arrival: Ambulatory aj1 21:46 Acuity: CALI 3 aj1 Triage Assessment: 21:47 General: Appears in no apparent distress. comfortable, Behavior is calm, cooperative, aj1 appropriate for age. Pain: Pain currently is 8 out of 10 on a pain scale. Neuro: Level of Consciousness is awake, alert, obeys commands. Cardiovascular: Patient's skin is warm and dry. Respiratory: Airway is patent Respiratory effort is even, unlabored, Respiratory pattern is regular, symmetrical. CRAS: 21:47 LMP 08/03/2019 aj1 Historical: - Allergies: 21:47 tramadol; aj1 - Home Meds: 21:47 hydroxyzine HCl 25 mg Oral tab 1 tab daily [Active]; Xanax 0.25 mg Oral tab 1 tab as aj1 needed [Active]; Zoloft 50 mg Oral tab 1 tab once daily [Active]; - PMHx: 21:47 ADD/ADHD; Anxiety; Depression; aj1 - Immunization history:: Flu vaccine is not up to date. - Social history:: Smoking status: Reported history of juuling and/or vaping. - Ebola Screening: : Patient denies travel to an Ebola-affected area in the 21 days before illness onset. Screenin:59 Abuse screen: Denies threats or abuse. Denies injuries from another. Nutritional ls4 screening: No deficits noted. Tuberculosis screening: No symptoms or risk factors identified. Fall Risk None identified. Assessment: 23:58 General: Appears in no apparent distress. comfortable. Neuro: No deficits noted. ls4 Cardiovascular: No deficits noted. Respiratory: No deficits noted. GI: No deficits noted. : No deficits noted. 08/04 02:30 Reassessment: Patient and/or family updated on plan of care and expected duration. Pain jv1 level reassessed. Patient is alert, oriented x 3, equal unlabored respirations, skin warm/dry/pink. General: Appears in no apparent distress. comfortable. Pain: Denies pain. Neuro: Level of Consciousness is awake, alert, obeys commands. Vital Signs: 08/03 21:47 BP 118 / 81; Pulse 77; Resp 18; Temp 97.9; Pulse Ox 100% on R/A; Weight 56.7 kg (R); aj1 Height 5 ft. 9 in. (175.26 cm) (R); Pain 8/10; 22:50 BP 120 / 80; Pulse 75; Resp 18; Temp 98.4; Pulse Ox 98% on R/A; Pain 0/10; jv1 23:50 BP 125 / 87; Pulse 78; Resp 18; Temp 98; Pulse Ox 98% on R/A; jv1 08/04 00:50 BP 117 / 85; Pulse 74; Resp 18; Temp 98; Pulse Ox 98% ; jv1 01:50 BP 121 / 85; Pulse 78; Resp 18; Temp 98; Pulse Ox 98% on R/A; jv1 02:50 BP 123 / 80; Pulse 78; Resp 18; Temp 98; Pulse Ox 98% on R/A; jv1 08/03 21:47 Body Mass Index 18.46 (56.70 kg, 175.26 cm) aj1 ED Course: 08/03 21:20 Patient arrived in ED. cl3 21:47 Triage completed. aj1 21:47 Arm band placed on Patient placed in waiting room, Patient notified of wait time. aj1 22:26 Nelly Chanel, RN is Primary Nurse. ls4 22:53 Mansoor Paul PA is PHCP. jmm 22:53 Michael Dudley MD is Attending Physician. jmm 23:31 Transvaginal Study Probe In Process Unspecified. EDMS 23:59 Patient has correct armband on for positive identification. Placed in gown. Bed in low ls4 position. Call light in reach. Side rails up X 1. 23:59 No provider procedures requiring assistance completed. Patient did not have IV access ls4 during this emergency room visit. 01 01:12 Radiology exam delayed due to lab results not completed at this time. (BUN/Creatinine). kw1 02:11 CT Abd/Pelvis - IV Contrast Only In Process Unspecified. EDMS Administered Medications: 00:23 Not Given (Patient Refused): Harlan 5 mg-325 mg 1 tabs PO once; RASS on ADMIN: Combtv4, ls4 Very Agttd3, Agttd2, Rstlss1, AlertClm0, Drwsy-1, Lt Sdtn-2, Mod Sdtn-3, Dp Sdtn-4, UnArsble-5 Outcome: 02:57 Discharge ordered by . arianna 03:18 Discharged to home ambulatory. jv1 03:18 Condition: improved 03:18 Discharge instructions given to patient, Instructed on discharge instructions, follow up and referral plans. medication usage, Demonstrated understanding of instructions, follow-up care, medications. 03:19 Patient left the ED. jv1 Signatures: Dispatcher [employer] EDMS Sophie Gilliam RN RN aj1 Mansoor Paul PA PA jm Francine Gonzalez kw1 Laura Loja RN RN jv1 Nelly Chanel RN RN ls4 Sherif Brown cl3 Corrections: (The following items were deleted from the chart) 08/03 23:30 23:27 To radiology for Pelvis Complete+US.RAD.BRZ. ls4 EDMS
--- NOTE | 2019-08-04 02:59 | EDPHYS ---
Physician Documentation [facility] Name: Evelin Biggs Age: 18 yrs Sex: Female : 2000 Arrival Date: 08/03/2019 Time: 21:20 Bed 26 Private MD: ED Physician Michael Dudley HPI: 08/03 22:58 This 18 yrs old Female presents to ER via Ambulatory with complaints of Cyst. jmm 22:58 The patient presents with pelvic pain. Onset: The symptoms/episode began/occurred jmm acutely, today. Modifying factors: The symptoms are alleviated by nothing, the symptoms are aggravated by nothing. Associated signs and symptoms: Pertinent negatives: fever. This is a 18 year old female with a history of anxiety, depression that presents to the ED with complaints of right lower pelvic pain. Patient was evaluated by SPECIAL SKILLS OFFICER and advised pain may be due to a cyst. Patient states pain intensified today. . 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 - Social history:: Smoking status: Reported history of juuling and/or vaping. - Ebola Screening: : Patient denies travel to an Ebola-affected area in the 21 days before illness onset. ROS: 22:58 Constitutional: Negative for fever, chills, and weight loss, Cardiovascular: Negative jmm for chest pain, palpitations, and edema, Respiratory: Negative for shortness of breath, cough, wheezing, and pleuritic chest pain. 22:58 : Positive for pelvic pain. 22:58 All other systems are negative. Exam: 22:58 Constitutional: This is a well developed, well nourished patient who is awake, alert, jmm and in no acute distress. Head/Face: atraumatic. Eyes: EOMI, no conjunctival erythema appreciated ENT: Moist Mucus Membranes Neck: Trachea midline, Supple Chest/axilla: Normal chest wall appearance and motion. Cardiovascular: Regular rate and rhythm. No edema appreciated Respiratory: Normal respirations, no respiratory distress appreciated 22:58 Back: Normal ROM Skin: General appearance color normal MS/ Extremity: Moves all extremities, no obvious deformities appreciated, no edema noted to the lower extremities Neuro: Awake and alert, normal gait 22:58 Abdomen/GI: Inspection: abdomen appears normal, Bowel sounds: normal, Palpation: soft, mild abdominal tenderness, in the suprapubic area. Vital Signs: 21:47 BP 118 / 81; Pulse 77; Resp 18; Temp 97.9; Pulse Ox 100% on R/A; Weight 56.7 kg (R); aj1 Height 5 ft. 9 in. (175.26 cm) (R); Pain 8/10; 22:50 BP 120 / 80; Pulse 75; Resp 18; Temp 98.4; Pulse Ox 98% on R/A; Pain 0/10; jv1 23:50 BP 125 / 87; Pulse 78; Resp 18; Temp 98; Pulse Ox 98% on R/A; jv1 08/04 00:50 BP 117 / 85; Pulse 74; Resp 18; Temp 98; Pulse Ox 98% ; jv1 01:50 BP 121 / 85; Pulse 78; Resp 18; Temp 98; Pulse Ox 98% on R/A; jv1 02:50 BP 123 / 80; Pulse 78; Resp 18; Temp 98; Pulse Ox 98% on R/A; jv1 08/03 21:47 Body Mass Index 18.46 (56.70 kg, 175.26 cm) [facility] MDM: 08/03 22:56 Patient medically screened. [facility] 08/04 02:56 Data reviewed: vital signs, nurses notes. Counseling: I had a detailed discussion with arianna the patient and/or guardian regarding: the historical points, exam findings, and any diagnostic results supporting the discharge/admit diagnosis, lab results, radiology results, the need for outpatient follow up, to return to the emergency department if symptoms worsen or persist or if there are any questions or concerns that arise at home. ED course: Patient is alert and non toxic in apperace in the ED. I discussed with the patient the need to follow up with SPECIAL SKILLS OFFICER for reevaluation. No discharge. Normal pelvic by SPECIAL SKILLS OFFICER. I do not suspect PID. Patient is otherwise given strict return precautions. . 08/03 22:38 Order name: Urine Dipstick--Ancillary (enter results); Complete Time: 01:42 [facility] 08/03 22:51 Order name: Urine --Ancillary (enter results); Complete Time: 01:42 [facility] 08/04 00:37 Order name: Basic Metabolic Panel; Complete Time: 01:42 [facility] 08/04 00:37 Order name: CBC with Diff; Complete Time: 01:42 [facility] 08/04 00:37 Order name: Hepatic Function; Complete Time: 01:42 [facility] 08/03 22:46 Order name: Urine Test (obtain specimen); Complete Time: 23:28 [facility] 08/03 23:30 Order name: Transvaginal Study Probe [facility] 08/04 00:37 Order name: Lipase; Complete Time: 01:42 [facility] 08/04 00:37 Order name: IV Saline Lock; Complete Time: 00:54 [facility] 08/04 00:37 Order name: Labs collected and sent; Complete Time: 00:54 [facility] 08/04 00:38 Order name: CT Abd/Pelvis - IV Contrast Only [facility] Administered Medications: 00:23 Not Given (Patient Refused): [place] 5 mg-325 mg 1 tabs PO once; RASS on ADMIN: Combtv4, ls4 Very Agttd3, Agttd2, Rstlss1, AlertClm0, Drwsy-1, Lt Sdtn-2, Mod Sdtn-3, Dp Sdtn-4, UnArsble-5 Disposition: 08/04/19 02:57 Discharged to Home. Impression: Abdominal and pelvic pain. - Condition is Stable. - Discharge Instructions: Pelvic Pain, Female. - Prescriptions for orphenadrine citrate 100 mg Oral Tablet Sustained Release - take 1 tablet by ORAL route 2 times per day As needed; 20 tablet. - Work release form, Medication Reconciliation Form, Thank You Letter, Antibiotic Education, Prescription Opioid Use form. - Follow up: Private Physician; When: 2 - 3 days; Reason: Recheck today's complaints, Continuance of care, Re-evaluation by your physician. Addendum: 08/05/2019 10:03 Co-signature as Attending Physician, Michael Dudley MD I agree with the assessment and c christie plan of care. Signatures: Dispatcher [employer] EDSophie Sifuentes RN RN aj1 Michael Dudley MD MD cha Mickail, Joel, PA PA [facility] Laura Loja RN RN jv1 Nelly Chanel RN ls4 Corrections: (The following items were deleted from the chart) 08/03 23:30 22:58 Pelvis Complete+US.RAD.BRZ ordered. [facility] 08/04 03:19 02:57 08/04/2019 02:57 Discharged to Home. Impression: Abdominal and pelvic pain. jv1 Condition is Stable. Forms are Medication Reconciliation Form, Thank You Letter, Antibiotic Education, Prescription Opioid Use. Follow up: Private Physician; When: 2 - 3 days; Reason: Recheck today's complaints, Continuance of care, Re-evaluation by your physician. arianna
[2019-08-04 03:44] VITALS: O2SAT 98
[2019-08-04 03:45] VITALS: TEMP 98
[2019-08-04 03:49] VITALS: BP 123/80
--- NOTE | 2019-08-04 07:45 | RAD REPORT ---
EXAM DESCRIPTION: US - Transvaginal Study Probe - 08/03/2019 11:30 pm CLINICAL HISTORY: Pelvic pain COMPARISON: none FINDINGS: The uterus measures 6 x 3 x 4cm. A fibroid is not seen. The endometrial stripe measures a few millimeters The ovaries are normal in size and echotexture. The right and left adnexum unremarkable. No significant free fluid is seen. IMPRESSION: Unremarkable pelvic ultrasound
--- NOTE | 2019-08-06 15:20 | RAD REPORT ---
EXAM DESCRIPTION: CT - Abdomen Pelvis W Contrast - 08/04/2019 2:11 am CLINICAL HISTORY: The patient is 18 years old and is Female; abdominal pain TECHNIQUE: Axial computed tomography images of the abdomen and pelvis with intravenous contrast. S agittal and coronal reformatted images were created and reviewed. This CT exam was performed using one or more of the following dose reduction techniques: automated exposure control, adjustment of t he mA and/or kV according to patient size, and/or use of iterative reconstruction technique. COMPARISON: CT of the abdomen and pelvis April 26, 2019 FINDINGS: LUNG BASES: Unremarkable. No mass. No consolidation. ABDOMEN: LIVER: Unremarkable. No mass. GALLBLADDER AND BILE DUCTS: No calcified stones. No ductal dilation. PANCREAS: No ductal dilation. No mass. SPLEEN: Unremarkable. ADRENALS: Unremarkable. No mass. KIDNEYS AND URETERS: Unremarkable. The kidneys enhance symmetrically. No obstructing renal or ur eteral calculus is seen. No hydronephrosis or hydroureter. No perinephric fluid or stranding. STOMACH AND BOWEL: The stomach is minimally fluid filled. The small bowel is normal in caliber. Stool is present throughout colon. There is no mucosal thickening or evidence of bowel obstruction. PELVIS: APPENDIX: The appendix is normal in caliber without surrounding inflammation. BLADDER: The bladder is well distended. REPRODUCTIVE: Unremarkable as visualized. ABDOMEN and PELVIS: INTRAPERITONEAL SPACE: Unremarkable. No free air. No significant fluid collection. BONES/JOINTS: No acute fracture. SOFT TISSUES: The soft tissues are normal. VASCULATURE: Unremarkable. No abdominal aortic aneurysm. LYMPH NODES: Unremarkable. No enlarged lymph nodes. IMPRESSION: No acute findings on this contrasted CT of the abdomen and pelvis to explain the patient 's symptoms. Electronically signed by: Bonnie Flowers MD 08/04/2019 2:46 AM SHELTERED WORKSHOP EXECUTIVE DIRECTOR Due to temporary technical issues with the PACS/Fluency reporting system, reports are being signed by the in house radiologist as a courtesy to ensure prompt reporting. The interpreting radiologist is f margueritely responsible for the content of the report.
== END 2019-08-04 03:19 | disposition home or self-care (01) ==
LOC: ER 21:18
DX: R10.2 Pelvic and perineal pain (principal); F41.9 Anxiety disorder, unspecified; F32.9 Major depressive disorder, single episode, unspecified; F90.9 Attention-deficit hyperactivity disorder, unspecified type; Z88.5 Allergy status to narcotic agent; Z87.891 Personal history of nicotine dependence
CPT/HCPCS: 85025; 80048; 36415; 81025; 80076; 81003; 83690; 74177; 76830; 99283; Q9967

== ENCOUNTER 2019-09-06 13:30 | Emergency (ER) | payer OTHER ==
--- OUTSIDE RECORDS SUMMARY | 2019-09-06 13:31 | XMS REPORT ---
:2000 [facility] Address [address] [place] [address] Dr. King [address] [place] [id number] Care Team Providers Name Role Phone Unavailable Unavailable Unavailable Problems This patient has no known problems. Allergies, Adverse Reactions, Alerts This patient has no known allergies or adverse reactions. Medications This patient has no known medications.
[2019-09-06] MEDS ORDERED: CEFTRIAXONE/SWI 1gm 1 GM/10 ML SYR ONE (14:11)
[2019-09-06] MEDS ORDERED: NA CHLORIDE 0.9% 1,000 ML ONE (14:11)
[2019-09-06 14:25] LABS: Urine Blood 3+ (NEG); Urine Glucose NEGATIVE (NEG); Urine Protein 3+ (NEG); Urine pH 6.5 (5.0-7.0)
[2019-09-06 14:28] LABS: Urine Appearance TURBID; Urine Bilirubin NEGATIVE (NEG); Urine Color RED
[2019-09-06 14:36] LABS: Urine Bacteria <20 /HPF (<20); Urine Culture Reflex Order REFLEXED; Urine RBC TNTC /HPF (NONE SEEN)
[2019-09-06] MEDS ORDERED: ONDANSETRON 4 MG/2 ML VIAL ONE (14:50)
[2019-09-06] MEDS ORDERED: FENTANYL CITR 100 MCG/2 ML ONE (14:50)
[2019-09-06 14:52] LABS: Albumin 4.2 g/dL (3.4-5.0); Bilirubin Direct 0.2 mg/dL (0-0.2); Bilirubin Total 1.2 mg/dL (0.2-1.0); Potassium 4.1 mmol/L (3.5-5.1); Protein, Total 7.6 g/dL (6.4-8.2)
[2019-09-06 14:54] LABS: Absolute Lymphocytes (CBC) 1.3 K/uL (0.7-4.9); Basophils % 0.4 % (0-1.3); Hematocrit 38.8 % (36.0-45.0); Lymphocytes % 10.8 % (15.3-44.8); MPV 8.4 fL (7.6-11.3); RBC Red Blood Cell Count 4.55 M/uL (3.86-4.86)
--- NOTE | 2019-09-06 15:28 | RAD REPORT ---
EXAM DESCRIPTION: CTAbdomen Pelvis W Contrast - 09/06/2019 3:18 pm CLINICAL HISTORY: Abdominal pain. iv only;Abd pain COMPARISON: Abdomen Pelvis W Contrast dated 08/04/2019; Abdomen Pelvis W Contrast dated 9; CT ABD PELVIS W CONTRAST dated 02/17/2014; Transvaginal Study Probe dated 08/03/2019 TECHNIQUE: Biphasic CT imaging of the abdomen and pelvis was performed with 100 ml non-ionic IV cont rast. All CT scans are performed using dose optimization technique as appropriate and may include automated exposure control or mA/KV adjustment according to patient size. FINDINGS: The lung bases are clear. The liver, spleen, pancreas, adrenal glands and kidneys are within normal limits. No bowel obstruction, free air, free fluid or abscess. The appendix is normal. No evidence of signi ficant lymphadenopathy. No suspicious bony findings. Gynecologic organs appear somewhat boggy/edematous, nonspecific. Mild enhancement is noted involving the urinary bladder mucosa suggesting infection. IMPRESSION: Cystitis is suspected. No pyelonephritis. Suggest clinical correlation for possible pelvic inflammatory disease.
--- NOTE | 2019-09-06 16:15 | EDPHYS ---
Physician Documentation [facility] Name: Evelin Biggs Age: 18 yrs Sex: Female : 2000 Arrival Date: 09/06/2019 Time: 13:32 Bed 18 Private MD: Raegan Michelle C ED Physician Niranjan Quan HPI: 09/06 14:38 This 18 yrs old Female presents to ER via Ambulatory with complaints of jr8 Urinary Problem. 14:38 The patient presents with urinary symptoms, dysuria, frequency, hematuria. Onset: The jr8 symptoms/episode began/occurred gradually, 3 day(s) ago. Modifying factors: The symptoms are alleviated by nothing, the symptoms are aggravated by urinating. Associated signs and symptoms: Pertinent positives: flank pain. Severity of symptoms: At their worst the symptoms were moderate, in the emergency department the symptoms are unchanged. The patient has not experienced similar symptoms in the past. The patient has been recently seen by a physician: the patient's primary care provider. was started on bactrim two days ago but feeling worse. More clots and hematuria . 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 - Coronavirus screen:: The patient has NOT traveled to [place] in the past 14 days. - Social history:: Smoking status: . - Ebola Screening: : Patient denies travel to an Ebola-affected area in the 21 days before illness onset. ROS: 14:38 Eyes: Negative for injury, pain, redness, and discharge, ENT: Negative for injury, jr8 pain, and discharge, Neck: Negative for injury, pain, and swelling, Cardiovascular: Negative for chest pain, palpitations, and edema, Respiratory: Negative for shortness of breath, cough, wheezing, and pleuritic chest pain, MS/Extremity: Negative for injury and deformity, Skin: Negative for injury, rash, and discoloration, Neuro: Negative for headache, weakness, numbness, tingling, and seizure. 14:38 Abdomen/GI: Positive for abdominal pain, Negative for nausea, vomiting, and diarrhea, constipation, abdominal cramps, abdominal distension. 14:38 Back: Positive for flank pain, on the left. 14:38 : Positive for urinary symptoms, flank pain, urinary frequency, hematuria, burning with urination, Negative for vaginal bleeding, vaginal discharge, vaginal itching, menstrual abnormality. Exam: 14:38 Eyes: Pupils equal round and reactive to light, extra-ocular motions intact. Lids and jr8 lashes normal. Conjunctiva and sclera are non-icteric and not injected. Cornea within normal limits. Periorbital areas with no swelling, redness, or edema. ENT: Nares patent. No nasal discharge, no septal abnormalities noted. Tympanic membranes are normal and external auditory canals are clear. Oropharynx with no redness, swelling, or masses, exudates, or evidence of obstruction, uvula midline. Mucous membranes moist. Neck: Trachea midline, no thyromegaly or masses palpated, and no cervical lymphadenopathy. Supple, full range of motion without nuchal rigidity, or vertebral point tenderness. No Meningismus. Cardiovascular: Regular rate and rhythm with a normal S1 and S2. No gallops, murmurs, or rubs. Normal PMI, no JVD. No pulse deficits. Respiratory: Lungs have equal breath sounds bilaterally, clear to auscultation and percussion. No rales, rhonchi or wheezes noted. No increased work of breathing, no retractions or nasal flaring. Skin: Warm, dry with normal turgor. Normal color with no rashes, no lesions, and no evidence of cellulitis. MS/ Extremity: Pulses equal, no cyanosis. Neurovascular intact. Full, normal range of motion. Neuro: Awake and alert, GCS 15, oriented to person, place, time, and situation. Cranial nerves II-XII grossly intact. Motor strength 5/5 in all extremities. Sensory grossly intact. Cerebellar exam normal. Normal gait. 14:38 Abdomen/GI: Inspection: abdomen appears normal, Bowel sounds: active, all quadrants, Palpation: soft, in all quadrants, mild abdominal tenderness, in the suprapubic area and left lower quadrant, voluntary guarding, is not appreciated, involuntary guarding, is not appreciated, no appreciated organomegaly, Indicators: McBurney's point is not tender, Hillman's sign is negative, Rovsing's sign is negative, Liver: tenderness, is not appreciated. 14:38 Back: pain, that is mild, of the left flank, CVA tenderness, that is moderate, is noted on the left. Vital Signs: 13:41 BP 128 / 85; Pulse 99; Resp 17; Temp 97.8(O); Pulse Ox 99% on R/A; Weight 56.7 kg; tw2 Height 5 ft. 8 in. (172.72 cm); Pain 9/10; 14:54 BP 117 / 95; Pulse 86; Resp 17 S; Pulse Ox 98% on R/A; ca1 15:36 BP 123 / 79; Pulse 86; Resp 17 S; Pulse Ox 98% on R/A; Pain 7/10; ca1 16:24 BP 111 / 63; Pulse 85; Resp 16 S; Pulse Ox 100% on R/A; ca1 13:41 Body Mass Index 19.01 (56.70 kg, 172.72 cm) tw2 MDM: 13:53 Patient medically screened. jr8 16:12 Data reviewed: vital signs, nurses notes, lab test result(s), radiologic studies, CT jr8 scan, and as a result, I will discharge patient. Data interpreted: Pulse oximetry: on room air is 98 %. Interpretation: normal. Counseling: I had a detailed discussion with the patient and/or guardian regarding: the historical points, exam findings, and any diagnostic results supporting the discharge/admit diagnosis, lab results, radiology results, the need for outpatient follow up, a family practitioner, to return to the emergency department if symptoms worsen or persist or if there are any questions or concerns that arise at home. 16:12 Response to treatment: the patient's symptoms have markedly improved after treatment. 09/06 13:58 Order name: Basic Metabolic Panel; Complete Time: 15:01 09/06 13:58 Order name: CBC with Diff; Complete Time: 15:12 09/06 13:58 Order name: Creatinine for Radiology 09/06 13:58 Order name: Hepatic Function; Complete Time: 15:01 09/06 14:24 Order name: Test, Urine; Complete Time: 14:41 EDMS 09/06 14:37 Order name: Urinalysis W/Microscopic; Complete Time: 14:41 [facility] 09/06 14:52 Order name: Creatinine (Radiology Only) [facility] 09/06 15:02 Order name: CT Abd/Pelvis - IV Contrast Only [facility] 09/06 15:29 Order name: Urine Culture [facility] 09/06 16:22 Order name: CT [facility] 09/06 13:58 Order name: IV Saline Lock; Complete Time: 14:43 [facility] 09/06 13:58 Order name: Labs collected and sent; Complete Time: 14:42 jr Administered Medications: 14:39 Drug: NS 0.9% 1000 ml Route: IV; Rate: 1000 ml; Site: right antecubital; ca1 15:42 Follow up: Response: No adverse reaction; IV Status: Completed infusion ca1 14:40 Drug: Rocephin 1 grams Route: IV; Rate: calculated rate; Site: right antecubital; ca1 15:42 Follow up: Response: No adverse reaction; IV Status: Completed infusion ca1 14:49 Drug: Zofran 4 mg Route: IVP; Site: right antecubital; ca1 15:42 Follow up: Response: No adverse reaction; Nausea is decreased ca1 14:52 Drug: fentaNYL (PF) 50 mcg {Note: RASS - 0.} Route: IVP; Site: right antecubital; ca1 15:42 Follow up: Response: No adverse reaction; Pain is decreased; RASS: Alert and Calm (0) ca1 Disposition: 16:36 Co-signature as Attending Physician, Niranjan Quan MD I agree with the assessment and kdr plan of care. Disposition: 09/06/19 16:13 Discharged to Home. Impression: Acute cystitis with hematuria. - Condition is Stable. - Discharge Instructions: Urinary Tract Infection, Adult. - Prescriptions for Augmentin 875- 125 mg Oral Tablet - take 1 tablet by ORAL route every 12 hours for 10 days; 20 tablet. Pyridium 200 mg Oral Tablet - take 1 tablet by ORAL route every 8 hours for 3 days; 9 tablet. - Medication Reconciliation Form, Thank You Letter, Antibiotic Education, Prescription Opioid Use, Work release form form. - Follow up: Raegan Michelle MD; When: 48 Hours; Reason: Recheck today's complaints, Continuance of care, Re-evaluation by your physician. - Problem is new. - Symptoms have improved. Signatures: Dispatcher [employer] EDMS Niranjan Quan MD MD kdr Roszak, Josh, PA PA jr8 Georgina Rojo RN RN tw2 Emilie Barbour RN RN ca1 Corrections: (The following items were deleted from the chart) 16:26 16:13 09/06/2019 16:13 Discharged to Home. Impression: Acute cystitis with hematuria. ca1 Condition is Stable. Forms are Medication Reconciliation Form, Thank You Letter, Antibiotic Education, Prescription Opioid Use. Follow up: A Michelle; When: 48 Hours; Reason: Recheck today's complaints, Continuance of care, Re-evaluation by your physician. Problem is new. Symptoms have improved. jr8
--- NOTE | 2019-09-06 16:15 | ER ---
Nurse's Notes [facility] Name: Evelin Biggs Age: 18 yrs Sex: Female : 2000 Arrival Date: 09/06/2019 Time: 13:32 Bed 18 Private MD: Raegan Michelle C Diagnosis: Acute cystitis with hematuria Presentation: 09/06 13:40 Presenting complaint: Patient states: i went to the Tuesday because i was having tw2 urinary tract symptoms and he gave me bactrim and been using azo otc and it is not helping, i am peeing blood and clots, i didn't take the bactrim today and i am feel nauseous and my back hurts really bad. Transition of care: patient was not received from another setting of care. Onset of symptoms was September 06, 2019. Risk Assessment: Do you want to hurt yourself or someone else? Patient reports no desire to harm self or others. Initial Sepsis Screen: Does the patient meet any 2 criteria? HR > 90 bpm. No. Patient's initial sepsis screen is negative. Does the patient have a suspected source of infection? No. Patient's initial sepsis screen is negative. Care prior to arrival: None. 13:40 Method Of Arrival: Ambulatory tw2 13:40 Acuity: CALI 3 tw2 Triage Assessment: 13:42 General: Appears in no apparent distress. slender, well groomed, Behavior is calm, tw2 cooperative, appropriate for age. Pain: Complains of pain in left mid back and right mid back. : Reports burning with urination. STEREOTYPE CASTER: 13:41 LMP 08/29/2019 tw2 Historical: - Allergies: 13:45 tramadol; tw2 - Home Meds: 13:45 Loestrin Fe 08/06 (28-Day) 1 mg-20 mcg (21)/75 mg (7) oral tab 1 tab once daily [Active];tw2 - PMHx: 13:45 ADD/ADHD; Anxiety; Depression; tw2 - PSHx: 13:45 Left wrist; fundoplication; tw2 - Immunization history:: Adult Immunizations. - Coronavirus screen:: The patient has NOT traveled to [place] in the past 14 days. - Social history:: Smoking status: . - Ebola Screening: : Patient denies travel to an Ebola-affected area in the 21 days before illness onset. Screenin:00 Abuse screen: Denies threats or abuse. Denies injuries from another. Nutritional ca1 screening: No deficits noted. Tuberculosis screening: No symptoms or risk factors identified. Fall Risk IV access (20 points). Assessment: 14:00 General: Appears in no apparent distress. comfortable, Behavior is calm, cooperative, ca1 appropriate for age. Pain: Complains of pain in left low back Pain radiates to suprapubic area Pain currently is 9 out of 10 on a pain scale. Quality of pain is described as sharp, Pain began 2-3 days ago. Is intermittent. Neuro: Level of Consciousness is awake, alert, obeys commands, Oriented to person, place, time, situation. Cardiovascular: Heart tones S1 S2 present Capillary refill < 3 seconds Patient's skin is warm and dry. Respiratory: Airway is patent Respiratory effort is even, unlabored, Respiratory pattern is regular, symmetrical, Breath sounds are clear bilaterally. GI: Abdomen is flat, non-distended, Bowel sounds present X 4 quads. Abd is soft and non tender X 4 quads. Reports nausea. : Reports burning with urination, urgency, urinary frequency. EENT: No deficits noted. No signs and/or symptoms were reported regarding the EENT system. Derm: Skin is intact, is healthy with good turgor, Skin is pink, warm \T\ dry. Musculoskeletal: Circulation, motion, and sensation intact. Capillary refill < 3 seconds. 14:54 Reassessment: Patient appears in no apparent distress at this time. Patient and/or ca1 family updated on plan of care and expected duration. Pain level reassessed. Patient is alert, oriented x 3, equal unlabored respirations, skin warm/dry/pink. 15:36 Reassessment: Patient appears in no apparent distress at this time. No changes from ca1 previously documented assessment. Patient is alert, oriented x 3, equal unlabored respirations, skin warm/dry/pink. 16:24 Reassessment: Patient appears in no apparent distress at this time. Patient is alert, ca1 oriented x 3, equal unlabored respirations, skin warm/dry/pink. Vital Signs: 13:41 BP 128 / 85; Pulse 99; Resp 17; Temp 97.8(O); Pulse Ox 99% on R/A; Weight 56.7 kg; tw2 Height 5 ft. 8 in. (172.72 cm); Pain 9/10; 14:54 BP 117 / 95; Pulse 86; Resp 17 S; Pulse Ox 98% on R/A; ca1 15:36 BP 123 / 79; Pulse 86; Resp 17 S; Pulse Ox 98% on R/A; Pain 7/10; ca1 16:24 BP 111 / 63; Pulse 85; Resp 16 S; Pulse Ox 100% on R/A; ca1 13:41 Body Mass Index 19.01 (56.70 kg, 172.72 cm) tw2 ED Course: 13:32 Patient arrived in ED. mr 13:32 Raegan Michelle MD is Private Physician. mr 13:37 Kristian Garces PA is PHCP. jr8 13:37 Niranjan Quan MD is Attending Physician. jr8 13:41 Triage completed. tw2 13:41 Arm band placed on. tw2 13:55 Urine collected: clean catch specimen, blood tinged, kylie blood. dh3 13:56 Emilie Barbour RN is Primary Nurse. ca1 14:00 Patient has correct armband on for positive identification. Bed in low position. Call ca1 light in reach. Side rails up X 1. Pulse ox on. NIBP on. Warm blanket given. 14:00 No provider procedures requiring assistance completed. ca1 14:30 Missed attempt(s): 20 gauge in left antecubital area. by CHRISTIAN Ornelas. Bleeding controlled, ca1 band aid applied, catheter tip intact. 14:40 Initial lab(s) drawn, by ED staff, sent to lab. Inserted saline lock: 20 gauge in right ca1 antecubital area, using aseptic technique. ,using aseptic technique. by CHRISTIAN Ornelas Blood collected. 16:13 Raegan Michelle MD is Referral Physician. jr8 16:25 IV discontinued, intact, bleeding controlled, No redness/swelling at site. Pressure ca1 dressing applied. Administered Medications: 14:39 Drug: NS 0.9% 1000 ml Route: IV; Rate: 1000 ml; Site: right antecubital; ca1 15:42 Follow up: Response: No adverse reaction; IV Status: Completed infusion ca1 14:40 Drug: Rocephin 1 grams Route: IV; Rate: calculated rate; Site: right antecubital; ca1 15:42 Follow up: Response: No adverse reaction; IV Status: Completed infusion ca1 14:49 Drug: Zofran 4 mg Route: IVP; Site: right antecubital; ca1 15:42 Follow up: Response: No adverse reaction; Nausea is decreased ca1 14:52 Drug: fentaNYL (PF) 50 mcg {Note: RASS - 0.} Route: IVP; Site: right antecubital; ca1 15:42 Follow up: Response: No adverse reaction; Pain is decreased; RASS: Alert and Calm (0) ca1 Outcome: 16:13 Discharge ordered by MD. gan 16:25 Discharged to home ambulatory. ca1 16:25 Condition: stable 16:25 Discharge instructions given to patient, Instructed on discharge instructions, follow up and referral plans. medication usage, Demonstrated understanding of instructions, follow-up care, medications, Prescriptions given X 2. 16:26 Patient left the ED. ca1 Signatures: Angi Mayen mr GarcesKristian PA PA jr8 Georgina Rojo RN RN tw2 Brittny Andrews 3 Emilie Barbour RN RN ca1 Corrections: (The following items were deleted from the chart) 14:42 14:40 Inserted saline lock: 20 gauge in right antecubital area, using aseptic ca1 technique. Blood collected. ca1
[2019-09-06 16:48] VITALS: TEMP 97.8
[2019-09-06 16:52] VITALS: BP 111/63; O2SAT 100
== END 2019-09-06 16:26 | disposition home or self-care (01) ==
LOC: ER 13:30
DX: N30.01 Acute cystitis with hematuria (principal); F34.1 Dysthymic disorder; F90.9 Attention-deficit hyperactivity disorder, unspecified type; Z88.5 Allergy status to narcotic agent
CPT/HCPCS: 96365; 85025; 81001; 87086; 80048; 36415; 81025; 80076; 74177; 96375; 99284; Q9967; J3010; J0696; J7030; J2405; 87088

== ENCOUNTER 2020-04-17 20:25 | Emergency (ER) | payer OTHER ==
[2020-04-17] MEDS ORDERED: IBUPROFEN 200 MG TAB PO ONE (21:11)
[2020-04-17] MEDS ORDERED: ACETAMINOPHEN 500 MG TAB ONE (21:11)
[2020-04-17] MEDS ORDERED: NA CHLORIDE 0.9% 1,000 ML ONE (21:25)
[2020-04-17] MEDS ORDERED: KETOROLAC 30 MG/ML INJ ONE (21:25)
[2020-04-17 21:30] LABS: Absolute Lymphocytes (CBC) 1.2 K/uL (0.7-4.9); Basophils % 0.3 % (0-1.3); Hematocrit 40.7 % (36.0-45.0); MPV 8.3 fL (7.6-11.3); RBC Red Blood Cell Count 4.84 M/uL (3.86-4.86)
[2020-04-17 21:37] LABS: BUN Blood Urea Nitrogen 3 mg/dL (7-18); Bicarbonate 26 mmol/L (21-32); Glucose Level 100 mg/dL (74-106); Potassium 3.5 mmol/L (3.5-5.1); Sodium Level 138 mmol/L (136-145)
--- NOTE | 2020-04-17 23:20 | EDPHYS ---
Physician Documentation [facility] Name: Evelin Biggs Age: 19 yrs Sex: Female : 2000 Arrival Date: 04/17/2020 Time: 20:26 Bed 20 Private MD: ED Physician Glenn Islas HPI: 04/17 21:12 This 19 yrs old Female presents to ER via Ambulatory with complaints of jr8 Fever, Sore Throat. 21:12 The patient reports fever, with an emergency department temperature of 102.5 degrees jr8 Fahrenheit. Onset: The symptoms/episode began/occurred acutely, yesterday. Modifying factors: there are no obvious modifying factors. Associated signs and symptoms: Pertinent positives: arthralgias, chills, sore throat, headache . Severity of symptoms: At their worst the symptoms were moderate in the emergency department the symptoms are unchanged. The patient has not experienced similar symptoms in the past. The patient has not recently seen a physician. Historical: - Allergies: 20:39 tramadol; ll1 - PMHx: 20:39 ADD/ADHD; Anxiety; Depression; ll1 - PSHx: 20:39 Left wrist; fundoplication; ll1 - Immunization history:: Flu vaccine is up to date. - Social history:: Smoking status: Patient denies any tobacco usage or history of. ROS: 21:12 Eyes: Negative for injury, pain, redness, and discharge, Neck: Negative for injury, jr8 pain, and swelling, Cardiovascular: Negative for chest pain, palpitations, and edema, Respiratory: Negative for shortness of breath, cough, wheezing, and pleuritic chest pain, Abdomen/GI: Negative for abdominal pain, nausea, vomiting, diarrhea, and constipation, Back: Negative for injury and pain, MS/Extremity: Negative for injury and deformity, Skin: Negative for injury, rash, and discoloration. 21:12 Constitutional: Positive for body aches, chills, fatigue, fever, malaise. 21:12 ENT: Positive for sore throat, Negative for drainage from ear(s), ear pain, nasal discharge, rhinorrhea, sinus congestion, sinus pain. 21:12 Neuro: Positive for headache. Exam: 21:12 Eyes: Pupils equal round and reactive to light, extra-ocular motions intact. Lids and jr8 lashes normal. Conjunctiva and sclera are non-icteric and not injected. Cornea within normal limits. Periorbital areas with no swelling, redness, or edema. Neck: Trachea midline, no thyromegaly or masses palpated, and no cervical lymphadenopathy. Supple, full range of motion without nuchal rigidity, or vertebral point tenderness. No Meningismus. Respiratory: Lungs have equal breath sounds bilaterally, clear to auscultation and percussion. No rales, rhonchi or wheezes noted. No increased work of breathing, no retractions or nasal flaring. Abdomen/GI: Soft, non-tender, with normal bowel sounds. No distension or tympany. No guarding or rebound. No evidence of tenderness throughout. Back: No spinal tenderness. No costovertebral tenderness. Full range of motion. Skin: Warm, dry with normal turgor. Normal color with no rashes, no lesions, and no evidence of cellulitis. MS/ Extremity: Pulses equal, no cyanosis. Neurovascular intact. Full, normal range of motion. Neuro: Awake and alert, GCS 15, oriented to person, place, time, and situation. Cranial nerves II-XII grossly intact. Motor strength 5/5 in all extremities. Sensory grossly intact. Cerebellar exam normal. Normal gait. 21:12 ENT: Exam is negative for earache, ear discharge, TM abnormalities, nasal discharge, sinus tenderness, Mouth: Lips: moist, Oral mucosa: pink and intact, moist, Gums: pink, Tongue: is moist, Posterior pharynx: Airway: patent, Tonsils: bilaterally enlarged, with erythema, no exudate, no ulcerations, Uvula: midline, non-edematous, no erythema, swelling, is not appreciated, erythema, is not appreciated. 21:12 Cardiovascular: Rate: tachycardic, Rhythm: regular, Pulses: Pulses are 2+ in right radial artery and left radial artery. Heart sounds: normal, normal S1and S2, no S3 or S4, no murmur, no rub, no gallop, Edema: is not appreciated. Vital Signs: 20:37 BP 135 / 88; Pulse 130; Resp 17; Temp 102.5; Pulse Ox 99% ; Weight 56.7 kg; Height 5 ll1 ft. 9 in. (175.26 cm); Pain 8/10; 22:30 BP 99 / 60; Pulse 98; Resp 16; Temp 98.9(O); Pulse Ox 100% ; jb4 20:37 Body Mass Index 18.46 (56.70 kg, 175.26 cm) ll1 MDM: 20:46 Patient medically screened. jr8 23:19 Data reviewed: vital signs, nurses notes, lab test result(s), and as a result, I will jr8 discharge patient. Data interpreted: Pulse oximetry: on room air is 100 %. Interpretation: normal. Counseling: I had a detailed discussion with the patient and/or guardian regarding: the historical points, exam findings, and any diagnostic results supporting the discharge/admit diagnosis, lab results, the need for outpatient follow up, a family practitioner, to return to the emergency department if symptoms worsen or persist or if there are any questions or concerns that arise at home. Response to treatment: the patient's symptoms have markedly improved after treatment, patient is well hydrated. 04/17 21:02 Order name: Strep; Complete Time: 22:48 [facility] 04/17 21:02 Order name: Influenza Screen (a \T\ B); Complete Time: 22:48 8 04/17 21:02 Order name: COVID-19 [facility] 04/17 21:04 Order name: CBC with Diff; Complete Time: 21:32 8 04/17 21:04 Order name: Basic Metabolic Panel; Complete Time: 21:57 8 04/17 22:47 Order name: Throat Culture [facility] 04/17 21:04 Order name: IV; Complete Time: 21:59 8 Administered Medications: 21:06 Drug: Tylenol 1000 mg Route: PO; jb4 22:15 Follow up: Response: No adverse reaction; Temperature is decreased jb4 21:45 Drug: NS 0.9% 1000 ml Route: IV; Rate: 1000 ml; Site: right antecubital; jb4 22:30 Follow up: Response: No adverse reaction; IV Status: Completed infusion jb4 21:45 Drug: TORadol - Ketorolac 15 mg Route: IVP; Site: right antecubital; jb4 22:15 Follow up: Response: No adverse reaction; Temperature is decreased; Pain is decreased jb4 Disposition: 04/18 06:01 Co-signature as Attending Physician, Glenn Islas MD I agree with the assessment and tw4 plan of care. Disposition: 04/17/20 23:20 Discharged to Home. Impression: Acute pharyngitis. - Condition is Stable. - Discharge Instructions: Pharyngitis. - Prescriptions for Augmentin 875- 125 mg Oral Tablet - take 1 tablet by ORAL route every 12 hours for 10 days; 20 tablet. - Medication Reconciliation Form, Thank You Letter, Antibiotic Education, Prescription Opioid Use form. - Follow up: Private Physician; When: 5 - 6 days; Reason: Recheck today's complaints, Continuance of care, Re-evaluation by your physician. - Problem is new. - Symptoms have improved. Signatures: Dispatcher [employer] EDMS Kristian Garces PA PA jr8 Devin Flowers RN RN jb4 Glenn Islas MD MD tw4 Danilo Brown RN RN ll1 Corrections: (The following items were deleted from the chart) 04/17 23:38 23:20 04/17/2020 23:20 Discharged to Home. Impression: Acute pharyngitis. Condition is jb4 Stable. Forms are Medication Reconciliation Form, Thank You Letter, Antibiotic Education, Prescription Opioid Use. Follow up: Private Physician; When: 5 - 6 days; Reason: Recheck today's complaints, Continuance of care, Re-evaluation by your physician. Problem is new. Symptoms have improved. jr8
--- NOTE | 2020-04-17 23:20 | ER ---
Nurse's Notes [facility] Name: Evelin Biggs Age: 19 yrs Sex: Female : 2000 Arrival Date: 04/17/2020 Time: 20:26 Bed 20 Private MD: Diagnosis: Acute pharyngitis Presentation: 04/17 20:37 Chief complaint: Patient states: Fever, sore throat for 1 day. Fever 103 at home. Sent ll1 by Dr. Michelle for eval. Coronavirus screen: Client denies travel out of the [place] in the last 14 days. At this time, the client does not indicate any symptoms associated with coronavirus-19. Ebola Screen: Patient denies travel to an Ebola-affected area in the 21 days before illness onset. Initial Sepsis Screen: Does the patient meet any 2 criteria? Temp <36.0*C (96.8*F)) or > 38.3*C (100.9*F). HR > 90 bpm. Yes Does the patient have a suspected source of infection? Yes: Other: tonsils/sore throat. Risk Assessment: Do you want to hurt yourself or someone else? Patient reports no desire to harm self or others. Onset of symptoms was April 17, 2020. 20:37 Method Of Arrival: Ambulatory ll1 20:37 Acuity: CALI 2 ll1 Historical: - Allergies: 20:39 tramadol; ll1 - PMHx: 20:39 ADD/ADHD; Anxiety; Depression; ll1 - PSHx: 20:39 Left wrist; fundoplication; ll1 - Immunization history:: Flu vaccine is up to date. - Social history:: Smoking status: Patient denies any tobacco usage or history of. Screenin:45 Abuse screen: Denies threats or abuse. Nutritional screening: No deficits noted. jb4 Tuberculosis screening: No symptoms or risk factors identified. Fall Risk None identified. Assessment: 20:45 General: Appears in no apparent distress. uncomfortable, Behavior is calm, cooperative, jb4 appropriate for age. Pain: Complains of pain in Generalized body ache, soar throat Pain does not radiate. Pain currently is 8 out of 10 on a pain scale. Neuro: Level of Consciousness is awake, alert, obeys commands, Oriented to person, place, time, situation. Cardiovascular: Patient's skin is warm and dry. Respiratory: Airway is patent Respiratory effort is even, unlabored, Respiratory pattern is regular, symmetrical. GI: No signs and/or symptoms were reported involving the gastrointestinal system. : No signs and/or symptoms were reported regarding the genitourinary system. EENT: Throat is clear is reddened with gag reflex present. Derm: No signs and/or symptoms reported regarding the dermatologic system. Musculoskeletal: Circulation, motion, and sensation intact. Range of motion: intact in all extremities. 22:00 Reassessment: Patient appears in no apparent distress at this time. Patient and/or jb4 family updated on plan of care and expected duration. Pain level reassessed. Patient is alert, oriented x 3, equal unlabored respirations, skin warm/dry/pink. 23:37 Reassessment: Patient appears in no apparent distress at this time. Patient and/or jb4 family updated on plan of care and expected duration. Pain level reassessed. Patient is alert, oriented x 3, equal unlabored respirations, skin warm/dry/pink. Vital Signs: 20:37 BP 135 / 88; Pulse 130; Resp 17; Temp 102.5; Pulse Ox 99% ; Weight 56.7 kg; Height 5 ll1 ft. 9 in. (175.26 cm); Pain 8/10; 22:30 BP 99 / 60; Pulse 98; Resp 16; Temp 98.9(O); Pulse Ox 100% ; jb4 20:37 Body Mass Index 18.46 (56.70 kg, 175.26 cm) ll1 ED Course: 20:26 Patient arrived in ED. cl3 20:38 Triage completed. ll1 20:39 Arm band placed on. ll1 20:45 Patient has correct armband on for positive identification. Bed in low position. Call jb4 light in reach. Side rails up X 1. Pulse ox on. NIBP on. 20:46 Kristian Garces PA is PHCP. jr8 20:46 Glenn Islas MD is Attending Physician. jr8 20:53 Devin Flowers RN is Primary Nurse. jb4 21:45 Inserted saline lock: 20 gauge in right antecubital area, using aseptic technique. jb4 23:37 No provider procedures requiring assistance completed. IV discontinued, intact, jb4 bleeding controlled, No redness/swelling at site. Pressure dressing applied. Administered Medications: 21:06 Drug: Tylenol 1000 mg Route: PO; jb4 22:15 Follow up: Response: No adverse reaction; Temperature is decreased jb4 21:45 Drug: NS 0.9% 1000 ml Route: IV; Rate: 1000 ml; Site: right antecubital; jb4 22:30 Follow up: Response: No adverse reaction; IV Status: Completed infusion jb4 21:45 Drug: TORadol - Ketorolac 15 mg Route: IVP; Site: right antecubital; jb4 22:15 Follow up: Response: No adverse reaction; Temperature is decreased; Pain is decreased jb4 Outcome: 23:20 Discharge ordered by . jr8 23:37 Discharged to home ambulatory, with family. jb4 23:37 Condition: stable 23:37 Discharge instructions given to patient, Instructed on discharge instructions, follow up and referral plans. medication usage, Demonstrated understanding of instructions, follow-up care, medications, Prescriptions given X 1. 23:38 Patient left the ED. jb4 Addendum: 04/22/2020 07:46 Addendum: COVID-19 Result: Negative result given to RN to notify pt. Notified pt of i w negative COVID 19 swab results. Pt advised that even with a negative test result they should remain in isolation until symptom free for 3 days without medication. Pt also advised to return to the ED for worsening symptoms. Signatures: Liza Prince RN RN iw Roszak, Josh, PA PA jr8 Devin Flowers RN RN jb4 Lewis, Charde 3 Danilo Brown RN RN ll1
[2020-04-18 00:35] VITALS: BP 99/60; TEMP 98.9; O2SAT 100
== END 2020-04-17 23:38 | disposition home or self-care (01) ==
LOC: ER 20:25 → SUPCPDRO 20:25 → ER 23:38
DX: J02.9 Acute pharyngitis, unspecified (principal); Z20.828 Contact with and (suspected) exposure to other viral communicable diseases; Z88.5 Allergy status to narcotic agent
CPT/HCPCS: 96361; 87070; 85025; 80048; 36415; 87081; 87804 ×2; 96374; 99284; U0002; J7030

== ENCOUNTER 2020-12-17 12:10 | Emergency (ER) | payer OTHER ==
--- OUTSIDE RECORDS SUMMARY | 2020-12-17 12:13 | XMS REPORT | Continuity of Care Document ---
:2000 Author Organization [facility] t Address [address] [place] [address] [address] [place] [address] Care Team Providers Name Role Phone Jaycee Holm RN Attending Clinician Unavailable Pob1, Care [facility] Attending Clinician Unavailable Deshawn RAMSEY Attending Clinician Problems This patient has no known problems. Allergies, Adverse Reactions, Alerts Allergy Allergy Status Severity Reaction(s) Onset Inactive Treating Comm ents Source Name Type Date Date Clinician Tramadol Propensi Active Itching 2018-07 [place] to 0-10 Methodi adverse 00:00: st reaction 00 s to drug Social History Social Habit Start Date Stop Date Quantity Comments Source Sex Assigned At [birth year] [facility] ethodist 00:00:00 00:00:00 Medications This patient has no known medications. Procedures This patient has no known procedures. Encounters Start End Encounter Admission Attending Care Care Encounter Source Date/Time Date/Time Type Type Clinicians Facility Department ID 2019-10-13 2019-10-13 Nurse Paulino RAM [id number] 00:00:00 00:00:00 Triage Felisa barraza [id number] [facility] [id number] 2019-10-10 2019-10-10 Telephone Tajb1, [facility] [id number] 00:00:00 00:00:00 [facility] [id number] [place] [id number] Justin [id number] [address] 2019-02-12 2019-02-12 [facility] [id number] 00:00:00 00:00:00 Gillian Liao [id number] Pediatric [id number] [facility] [id number] Results This patient has no known results.
[2020-12-17 13:08] LABS: Urine Blood 2+ (Negative); Urine Glucose Negative (Negative); Urine Protein Negative (Negative); Urine Specific Gravity <=1.005 (1.005-1.030)
[2020-12-17 13:48] LABS: Urine Bacteria <20 /HPF (<20); Urine RBC <5 /HPF (NONE SEEN)
[2020-12-17] MEDS ORDERED: NA CHLORIDE 0.9% 1,000 ML ONE (15:16)
[2020-12-17 15:17] LABS: Absolute Lymphocytes (CBC) 1.5 K/uL (0.7-4.9); Basophils % 0.4 % (0-1.3); Hematocrit 40.6 % (36.0-45.0); Lymphocytes % 12.2 % (15.3-44.8); MPV 8.3 fL (7.6-11.3)
[2020-12-17 15:34] LABS: BUN Blood Urea Nitrogen 4 mg/dL (7-18); Bicarbonate 27 mmol/L (21-32); Glucose Level 83 mg/dL (74-106); Potassium 3.8 mmol/L (3.5-5.1); Sodium Level 141 mmol/L (136-145)
[2020-12-17] MEDS ORDERED: KETOROLAC 30 MG/ML INJ ONE (16:11)
--- NOTE | 2020-12-17 16:52 | RAD REPORT ---
EXAM DESCRIPTION: CT - Abdomen Pelvis W Contrast - 12/17/2020 4:24 pm CLINICAL HISTORY: ABD PAIN COMPARISON: Abdomen Pelvis W Contrast dated 09/06/2019 TECHNIQUE: Biphasic, helical CT imaging of the abdomen and pelvis was performed following 100 ml non -ionic IV contrast. No oral contrast given. All CT scans are performed using dose optimization technique as appropriate and may include automated exposure control or mA/KV adjustment according to patient size. FINDINGS: No suspicious findings in the lung bases. The liver, spleen, and pancreas show no suspicious findings. Gallbladder and biliary tree are also wi thout suspicious finding. Symmetric renal function is seen with no hydronephrosis or suspicious renal mass. No pyelonephritis o r acute parenchymal process. Urinary bladder is only partially filled which accentuates the wall thic kness. No gross bladder abnormality seen. Cystitis cannot be excluded. No adrenal abnormalities. Uter us and ovaries show no suspicious findings. No fallopian tube dilatation. Trace free fluid in the cul de sac is within physiologic limits. Tampon is in place. No dilated bowel loops or bowel wall thickening. Cecum is low-lying on the floor of the pelvis. The a ppendix is not clearly identifiable. Appendix was not well visualized on the comparison. Appendicitis is not suspected. No free air, free fluid or inflammatory stranding. No hernia, mass or bulky lymphadenopathy. No suspicious bony findings. IMPRESSION: Contrast enhanced CT abdomen and pelvis showing no acute or emergent finding. Pyelonephritis is not identifiable. Cystitis cannot be fully excluded in the setting of contracted bl adder. The appendix is not clearly defined. Appendicitis is not suspected. An acute GI process is not identi fiable.
--- NOTE | 2020-12-17 17:04 | ER ---
Nurse's Notes [facility] Name: Evelin Biggs Age: 20 yrs Sex: Female : 2000 Arrival Date: 12/17/2020 Time: 12:11 Bed DIS1 Private MD: Raegan Michelle C Diagnosis: Urinary tract infection, site not specified Presentation: 12/17 12:58 Chief complaint: Patient states: Urinary frequency and burning, lower abdominal pain, ph nausea, diarrhea and headache, symptoms started yesterday. Coronavirus screen: Client denies travel out of the [place] in the last 14 days. At this time, the client does not indicate any symptoms associated with coronavirus-19. Ebola Screen: No symptoms or risks identified at this time. Initial Sepsis Screen: Does the patient meet any 2 criteria? No. Patient's initial sepsis screen is negative. Does the patient have a suspected source of infection? Yes: Dysuria/Frequency/Urgency/UTI. Risk Assessment: Do you want to hurt yourself or someone else? Patient reports no desire to harm self or others. Onset of symptoms was December 17, 2020. 12:58 Method Of Arrival: Ambulatory ph 12:58 Acuity: CALI 4 ph Triage Assessment: 12:59 General: Appears in no apparent distress. comfortable, slender, well groomed, Behavior ph is calm, cooperative, appropriate for age. Pain: Complains of pain in suprapubic area. Neuro: Level of Consciousness is awake, alert, obeys commands, Oriented to person, place, time, situation. Cardiovascular: No deficits noted. Respiratory: No deficits noted. GI: Reports diarrhea. : Reports burning with urination, pain in suprapubic area with urination, urinary frequency. Derm: Skin is intact, is healthy with good turgor. Musculoskeletal: Circulation, motion, and sensation intact. Range of motion: intact in all extremities. 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 - Social history:: Smoking status: Patient denies any tobacco usage or history of. Screenin:59 Abuse screen: Denies threats or abuse. Denies injuries from another. Nutritional ph screening: No deficits noted. Tuberculosis screening: No symptoms or risk factors identified. Fall Risk None identified. Assessment: 14:30 Reassessment: Patient is alert, oriented x 3, equal unlabored respirations, skin aa5 warm/dry/pink. 15:15 Reassessment: Patient is alert, oriented x 3, equal unlabored respirations, skin aa5 warm/dry/pink. Pt requesting pain medication, ASSET PROTECTION PROFESSIONAL was notified and currently awaiting serum test result before pain medication is ordered, pt was notified. . 15:53 Reassessment: Patient is alert, oriented x 3, equal unlabored respirations, skin aa5 warm/dry/pink. Awaiting CT scan. 17:18 Reassessment: Patient is alert, oriented x 3, equal unlabored respirations, skin aa5 warm/dry/pink. Vital Signs: 12:56 BP 129 / 79; Pulse 98; Resp 18; Temp 98.3; Pulse Ox 99% on R/A; Weight 56.7 kg; Height ph 5 ft. 9 in. (175.26 cm); 12:56 Body Mass Index 18.46 (56.70 kg, 175.26 cm) ph ED Course: 12:11 Patient arrived in ED. as 12:12 Raegan Michelle MD is Private Physician. as 12:28 Magdalena Gutierrez FNP-C [facility]. kb 12:28 Glenn Islas MD is Attending Physician. kb 12:55 Arm band placed on. ph 12:59 Triage completed. ph 13:43 Sonia Taylor, CHRISTIAN is Primary Nurse. jl7 14:30 Patient has correct armband on for positive identification. aa5 15:05 Initial lab(s) drawn, by me, sent to lab. Inserted saline lock: 22 gauge in right aa5 forearm, using aseptic technique. Blood collected. 16:24 CT Abd/Pelvis - IV Contrast Only In Process Unspecified. EDMS 17:03 Raegan Michelle MD is Referral Physician. kb 17:18 No provider procedures requiring assistance completed. IV discontinued, intact, aa5 bleeding controlled, No redness/swelling at site. Pressure dressing applied. Administered Medications: 15:05 Drug: NS 0.9% 1000 ml Route: IV; Rate: 1000 ml; Site: right forearm; aa5 15:53 Follow up: IV Status: Completed infusion; IV Intake: 1000ml aa5 15:53 Drug: TORadol (ketorolac) 30 mg Route: IVP; Site: right forearm; aa5 16:10 Follow up: Response: No adverse reaction aa5 17:15 Drug: Pyridium (phenazopyridine) 200 mg Route: PO; aa5 17:18 Follow up: Response: Medication administered at discharge. aa5 17:15 Drug: Macrobid (nitrofurantoin) 100 mg Route: PO; aa5 17:18 Follow up: Response: Medication administered at discharge. aa5 Intake: 15:53 IV: 1000ml; Total: 1000ml. aa5 Outcome: 17:03 Discharge ordered by . kb 17:18 Discharged to home ambulatory. aa5 17:18 Condition: stable 17:18 Discharge instructions given to patient, Instructed on discharge instructions, follow up and referral plans. medication usage, Demonstrated understanding of instructions, follow-up care, medications, Prescriptions given X 2. 17:23 Patient left the ED. aa5 Addendum: 12/20/2020 07:18 Addendum: Culture Results: Positive urine culture. No further action required. Bacteria m w2 sensitive to prescribed antibiotic. Signatures: Dispatcher [employer] EDNY Magdalena Gutierrez, DIANE LEE-Meaghan Lawson Audri, RN RN aa5 Georgia Chiu, RN RN Sonia Taylor RN RN jl7 Jyoti Rowan 2
--- NOTE | 2020-12-17 17:04 | EDPHYS ---
Physician Documentation [facility] Name: Evelin Biggs Age: 20 yrs Sex: Female : 2000 Arrival Date: 12/17/2020 Time: 12:11 Bed DIS1 Private MD: Raegan Michelle C ED Physician Glenn Islas HPI: 12/17 18:45 This 20 yrs old Female presents to ER via Ambulatory with complaints of kb Urinary Problem. 18:45 The patient presents with urinary symptoms, dysuria, frequency. Onset: The kb symptoms/episode began/occurred yesterday. Modifying factors: The symptoms are alleviated by nothing, the symptoms are aggravated by nothing. Associated signs and symptoms: Pertinent positives: diarrhea, dysuria, nausea. Severity of symptoms: At their worst the symptoms were moderate, in the emergency department the symptoms are unchanged. The patient has not experienced similar symptoms in the past. The patient has not recently seen a physician. Pt reports urinary frequency and dysuria that started yesterday. Symptoms worsened today and she has suprapubic pain, nausea and diarrhea. 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 - Social history:: Smoking status: Patient denies any tobacco usage or history of. ROS: 18:43 Positive for urinary symptoms, urinary frequency, burning with urination. kb 18:43 Constitutional: Negative for fever, chills, and weight loss. 18:43 Abdomen/GI: Positive for abdominal pain, nausea, diarrhea. 18:43 All other systems are negative. Exam: 18:44 Constitutional: This is a well developed, well nourished patient who is awake, alert, kb and in no acute distress. Head/Face: Normocephalic, atraumatic. ENT: Moist Mucous membranes Cardiovascular: Regular rate and rhythm with a normal S1 and S2. No gallops, murmurs, or rubs. No pulse deficits. Respiratory: Respirations even and unlabored. No increased work of breathing, no retractions or nasal flaring. Skin: Warm, dry with normal turgor. Normal color. MS/ Extremity: Pulses equal, no cyanosis. Neurovascular intact. Full, normal range of motion. Neuro: Awake and alert, GCS 15, oriented to person, place, time, and situation. Moves all extremities. Normal gait. Psych: Awake, alert, with orientation to person, place and time. Behavior, mood, and affect are within normal limits. 18:44 Abdomen/GI: Inspection: abdomen appears normal, Bowel sounds: normal, Palpation: soft, in all quadrants, mild abdominal tenderness, in the right lower quadrant and left lower quadrant, moderate abdominal tenderness, in the suprapubic area. Vital Signs: 12:56 BP 129 / 79; Pulse 98; Resp 18; Temp 98.3; Pulse Ox 99% on R/A; Weight 56.7 kg; Height ph 5 ft. 9 in. (175.26 cm); 12:56 Body Mass Index 18.46 (56.70 kg, 175.26 cm) ph MDM: 12:57 Patient medically screened. kb 18:43 Data reviewed: vital signs, nurses notes. Data interpreted: Pulse oximetry: on room air kb is 99 %. Interpretation: normal. Counseling: I had a detailed discussion with the patient and/or guardian regarding: the historical points, exam findings, and any diagnostic results supporting the discharge/admit diagnosis, lab results, radiology results, the need for outpatient follow up, a family practitioner, to return to the emergency department if symptoms worsen or persist or if there are any questions or concerns that arise at home. 12/17 12:29 Order name: Urine Microscopic Only; Complete Time: 13:49 kb 12/17 13:08 Order name: Urine Dipstick-Ancillary; Complete Time: 13:09 EDNM 12/17 13:49 Order name: Urine Culture EDNM 12/17 14:37 Order name: Basic Metabolic Panel; Complete Time: 15:35 kb 12/17 14:37 Order name: CBC with Diff; Complete Time: 15:27 kb 12/17 14:37 Order name: Test, Serum; Complete Time: 15:46 kb 12/17 12:29 Order name: Urine Test (obtain specimen); Complete Time: 13:31 kb 12/17 12:29 Order name: Urine Dipstick-Ancillary (obtain specimen); Complete Time: 14:27 kb 12/17 14:37 Order name: IV Saline Lock; Complete Time: 15:11 kb 12/17 15:47 Order name: CT Abd/Pelvis - IV Contrast Only; Complete Time: 16:57 kb 12/17 14:37 Order name: Labs collected and sent; Complete Time: 15:11 kb Administered Medications: 15:05 Drug: NS 0.9% 1000 ml Route: IV; Rate: 1000 ml; Site: right forearm; aa5 15:53 Follow up: IV Status: Completed infusion; IV Intake: 1000ml aa5 15:53 Drug: TORadol (ketorolac) 30 mg Route: IVP; Site: right forearm; aa5 16:10 Follow up: Response: No adverse reaction aa5 17:15 Drug: Pyridium (phenazopyridine) 200 mg Route: PO; aa5 17:18 Follow up: Response: Medication administered at discharge. aa5 17:15 Drug: Macrobid (nitrofurantoin) 100 mg Route: PO; aa5 17:18 Follow up: Response: Medication administered at discharge. aa5 Disposition: 18:47 Co-signature as Attending Physician, Glenn Islas MD I agree with the assessment and 4 plan of care. Disposition: 12/17/20 17:03 Discharged to Home. Impression: Urinary tract infection, site not specified. - Condition is Stable. - Discharge Instructions: Urinary Tract Infection, Adult, [id number]. - Prescriptions for Pyridium 200 mg Oral Tablet - take 1 tablet by ORAL route every 8 hours for 3 days; 9 tablet. Macrobid 100 mg Oral Capsule - take 1 capsule by ORAL route every 12 hours for 10 days; 20 capsule. - Medication Reconciliation Form, Thank You Letter, Antibiotic Education, Prescription Opioid Use form. - Follow up: Emergency Department; When: As needed; Reason: Worsening of condition. Follow up: Raegan Michelle MD; When: 2 - 3 days; Reason: Recheck today's complaints, Continuance of care, Re-evaluation by your physician. Signatures: Dispatcher [employer] Magdalena Alvarez, ROSA-C ROSA-Flora Pearl RN RN aa5 Georgia Chiu RN RN ph Glenn Islas MD MD tw4 Corrections: (The following items were deleted from the chart) 17:23 17:03 12/17/2020 17:03 Discharged to Home. Impression: Urinary tract infection, site aa5 not specified. Condition is Stable. Forms are Medication Reconciliation Form, Thank You Letter, Antibiotic Education, Prescription Opioid Use. Follow up: Emergency Department; When: As needed; Reason: Worsening of condition. Follow up: A Michelle; When: 2 - 3 days; Reason: Recheck today's complaints, Continuance of care, Re-evaluation by your physician. kb
[2020-12-17 17:32] VITALS: BP 129/79; TEMP 98.3; O2SAT 99
[2020-12-17] MEDS ORDERED: PHENAZOPYRIDINE 100MG TAB PO ONE (17:39)
[2020-12-17] MEDS ORDERED: NITROFURAN MACRO 100 MG CAP PO ONE (17:39)
== END 2020-12-17 17:23 | disposition home or self-care (01) ==
LOC: ER 12:10
DX: N39.0 Urinary tract infection, site not specified (principal); F41.8 Other specified anxiety disorders; Z88.5 Allergy status to narcotic agent
CPT/HCPCS: 96361; 87088; 85025; 87086; 80048; 36415; 84703; 87077; 87186; 74177; 96374; 99284; Q9967; J7030; 81003; 81015

== ENCOUNTER 2021-09-01 14:12 | Emergency (ER) | payer OTHER ==
--- OUTSIDE RECORDS SUMMARY | 2021-09-01 14:15 | XMS REPORT | Continuity of Care Document ---
:2000 Author Organization [facility] t Address [address] [place] [address] Care Team Providers Name Role Phone Zev Michelle Attending Clinician Unavailable Alta GONZALES, G Attending Clinician Unavailable OMA THOMPSON Attending Clinician Unavailable [facility], [facility] Attending Clinician Unavailable Deshawn RAMSEY Attending Clinician KEVIN COBIAN Attending Clinician Unavailable Payers Payer Name Policy Type Policy Number Effective Date Expiration Date S ource Problems Condition Condition Condition Status Onset Resolution Last Treating Co mments Source Name Details Category Date Date Treatment Clinician Date Sacroiliit Sacroiliit Problem Active U nivers is is ity of [place] [facility] Lumbar Lumbar Problem Active Univers strain strain ity of [place] [facility] Lumbar Lumbar Problem Active Univers facet facet [place]ge of [place] of Problem Active Unive rs lumbar lumbar ity of disc disc [place] without without Physici myelopathy myelopathy an s [place] Problem Active Univers left wrist left wrist it y of [place] [facility] ans No known No known Disease Unive rs active active ity of problems problems [facility] Allergies, Adverse Reactions, Alerts Allergy Allergy Status Severity Reaction(s) Onset Inactive Treating Comm ents Source Name Type Date Date Clinician NO KNOWN Drug Active Univers ALLERGIE Class ity of S [facility] Family History Family Member Diagnosis Comments Start Date Stop Date Source Unknown Family Family history of Family History [facility] arthritis [place] [facility] Social History Social Habit Start Date Stop Date Quantity Comments Source Sex [facility]igned At [facility] Smoking Status Start Date Stop Date Source Never smoker [facility] Medications Ordered Filled Start Stop Current Ordering Indication Dosage Frequency Signature Comments Components Source Medication Medication Date Date Medication? Clinician (SIG) Name Name cefdinir 2019- No 600mg Take 2 Unive rs 300 mg 3-28 04-08 capsules ity of capsule 00:00: 04:59 by mouth [place] 00 :00 daily for Medical 10 days. Branch amoxicillin 2019- No [id number] 500mg Take 1 Univers 500 mg 3-25 03-28 tablet by ity of tablet 00:00: 00:00 mouth 3 [place] 00 :00 (three) Medical times Branch daily for 7 days. norethindro Yes 1{tbl} Take 1 Un [place] ne-ethinyl 9-26 tablet by ity of estradiol-[place] 19:10: [place] 1 mg-20 27 Medical mcg(24) /75 Branch mg (4) per tablet norethindro Yes 1{tbl} Take 1 Un [place] ne-ethinyl 9-26 tablet by ity of estradiol-[place] 19:10: [place] 1 mg-20 27 Medical mcg(24) /75 Branch mg (4) per tablet LOESTRIN 2019- No 1{tbl} Take 1 U nivers (LOESTRIN 7-30 07-30 tablet by ity of FE 08/06) 1 20:53: 00:00 mouth [place] mg-20 mcg 37 :00 daily. Medical (21)/75 mg Branch (7) tablet LOESTRIN 2019- No [id number] 1{tbl} Take 1 Univers (LOESTRIN 7-30 08-28 tablet by ity of FE 08/06) 1 00:00: 04:59 mouth [place] mg-20 mcg 00 :00 daily for Medic al (21)/75 mg 28 days. Branc h (7) tablet methylPREDN methylPREDN 2016-07 Yes DEMETRIS TAKE Univers ISolone 4 ISolone 4 2-19 KEVIN DIRECTED ity of MG Oral MG Oral 00:00: MANGO Blue ON PATIENT [place] Tablet Tablet 00 INSTRUCTIO Physi ci Therapy Therapy N CARD.; ans Pack Pack Qty: 1 X 21 Tablet Disp Pack Meloxicam Meloxicam 2016-07 Yes DEMETRIS TAKE 1 Univers 7.5 MG Oral 7.5 MG Oral 2-19 LI-REBEKAH TABLET ity of Tablet Tablet 00:00: MANGO M.D. DAILY WITH [place] 00 FOOD. Physici Days: 30; ans Qty: 30 X Tablet; Refill: 3 Immunizations Ordered Immunization Filled Immunization Date Status Commen ts Source Name Name Meningococcal B, OMV 2018-08-18 Completed Univ ersity of 00:00:00 [facility] Influenza Virus 2018-08-18 Completed Universit y of Vaccine Quad .5 mL IM 00:00:00 [place] [facility] Medical 6+ MO Branch Meningococcal B, OMV 2018-08-18 Completed Univ ersity of 00:00:00 [facility] Influenza Virus 2018-08-18 Completed Universit y of Vaccine Quad .5 mL IM 00:00:00 [place] [facility] 6+ MO Branch Meningococcal B, OMV 2018-08-18 Completed Univ ersity of 00:00:00 [facility] Influenza Virus 2018-08-18 Completed Universit y of Vaccine Quad .5 mL IM 00:00:00 [place] [facility] 6+ [place] [facility] Influenza Virus 2017-06-29 Completed Universit y of Vaccine Quad IM 3+ 00:00:00 [facility] Influenza Virus 2017-06-29 Completed Universit y of Vaccine Quad IM 3+ 00:00:00 [facility] Influenza Virus 2017-06-29 Completed Universit y of Vaccine Quad IM 3+ 00:00:00 [facility] Meningococcal B, OMV 2016-06-01 Completed Univ ersity of 00:00:00 [facility] Meningococcal 2016-06-01 Completed University of Polysaccharide 00:00:00 [place] [facility]ilie (groups A, C, Y and Branc h W-135) conjugate vaccine (MCV4P) Meningococcal B, OMV 2016-06-01 Completed Univ ersity of 00:00:00 [facility] Meningococcal 2016-06-01 Completed University of Polysaccharide 00:00:00 [place] Medi emilie (groups A, C, Y and Branc h W-135) conjugate vaccine (MCV4P) Meningococcal B, OMV 2016-06-01 Completed Univ ersity of 00:00:00 [facility] Meningococcal 2016-06-01 Completed University of Polysaccharide 00:00:00 [place] Medi emilie (groups A, C, Y and Branc h W-135) conjugate vaccine (MCV4P) Influenza Virus 2016-04-08 Completed Universit y of Vaccine Quad IM 3+ 00:00:00 [facility] Influenza Virus 2016-04-08 Completed Universit y of Vaccine Quad IM 3+ 00:00:00 [facility] Influenza Virus 2016-04-08 Completed Universit y of Vaccine Quad IM 3+ 00:00:00 [facility] Influenza Virus 2015-08-21 Completed Universit y of Vaccine Quad IM 3+ 00:00:00 [facility] Influenza Virus 2015-08-21 Completed Universit y of Vaccine Quad IM 3+ 00:00:00 [facility] Influenza Virus 2015-08-21 Completed Universit y of Vaccine Quad IM 3+ 00:00:00 [facility] HPV 2012-05-31 Completed University of 00:00:00 [facility] HPV 2012-05-31 Completed University of 00:00:00 [facility] HPV 2012-05-31 Completed University of 00:00:00 [facility] HPV 2012-04-05 Completed University of 00:00:00 [facility] Influenza Virus 2012-04-05 Completed Universit y of Vaccine Quad IM 3+ 00:00:00 [facility] HPV 2012-04-05 Completed University of 00:00:00 [facility] Influenza Virus 2012-04-05 Completed Universit y of Vaccine Quad IM 3+ 00:00:00 [facility] HPV 2012-04-05 Completed University of 00:00:00 [facility] Influenza Virus 2012-04-05 Completed Universit y of Vaccine Quad IM 3+ 00:00:00 [facility] TDAP (ADACEL) VACCINE 2011-10-07 Completed Uni versity of 00:00:00 [facility] HPV 2011-10-07 Completed University of 00:00:00 [facility] Meningococcal 2011-10-07 Completed University of Polysaccharide 00:00:00 [place] Medi emilie (groups A, C, Y and Branc h W-135) conjugate vaccine (MCV4P) TDAP (ADACEL) VACCINE 2011-10-07 Completed Uni versity of 00:00:00 [facility] HPV 2011-10-07 Completed University of 00:00:00 [facility] Meningococcal 2011-10-07 Completed University of Polysaccharide 00:00:00 [place] Medi emilie (groups A, C, Y and Branc h W-135) conjugate vaccine (MCV4P) TDAP (ADACEL) VACCINE 2011-10-07 Completed Uni versity of 00:00:00 [facility] HPV 2011-10-07 Completed University of 00:00:00 [facility] Meningococcal 2011-10-07 Completed University of Polysaccharide 00:00:00 [place] Medi emilie (groups A, C, Y and Branc h W-135) conjugate vaccine (MCV4P) Procedures This patient has no known procedures. Encounters Start End Encounter Admission Attending Care Care Encounter Source Date/Time Date/Time Type Type Clinicians Facility Department ID 2021-08-12 Outpatient Michelle, [facility] [id number] [facility] 14[facility]08:21 [place] [address] [facility] 2021[facility]08-12 Outpatient Michelle, [facility] [id number] [facility] 13:55:56 [place] [address] [facility] 2021-05-25 2021-05-25 ambulatory [facility] [id number] [facility] 2021-05-19 2021-05-19 amb[facility] [id number] [facility] 2021-05-01 2021-05-01 Out[facility] [id number] [facility] 2021-04-17 2021-04-17 Out[facility] [id number] [facility] 2019-10-13 2019-10-13 Nurse Paulino RAM [id number] 00:00:00 00:00:00 Felisa Berman [id number] [facility] [id number] 2019-10-13 2019-10-13 Nurse Paulino RAM [id number] Univers 00:00:00 00:00:00 Triage dFelisaY [id number] ity of [facility] [id number] [place] as [id number] [facility] 019 Branch 2019-10-10 2019-10-10 Outpatient R [facility] [id number] Univers 19:30:00 19:30:00 [id number] [facility] 2019-10-10 2019-10-10 Outpatient R JAY, [facility] [id number] Univers 19:30:00 19:30:00 DEB [facility] 2019-10-10 2019-10-10 Telephone Pob1, Acute [facility] [id number] 00:00:00 00:00:00 [facility] [id number] [place] [id number] Professio [id number] [place] [address] [address] 2019-10-10 2019-10-10 Telephone Pob1, Acute [facility] [id number] Univers 00:00:00 00:00:00 [facility] [id number] ity of [place] [id number] [place] as Professio [id number] Mi dical [address] 2019-02-12 2019-02-12 Refill [facility] [id number] 00:00:00 00:00:00 Gillian Liao [id number] Pediatric [id number] Clinic [id number] [facility] 2019-02-12 2019-02-12 Refill [facility] [id number] Univers 00:00:00 00:00:00 Gillian Liao [id number] ity of [facility] [id number] [place] [facility] [id number] [facility] 225 Branch 2017-07-07 2017-07-07 Outpatient [facility] [id number] 13:45:00 15:51:07 2017-07-07 [facility] Orthopedics [id number] Univers 13:45:00 13:45:00 t; KEVIN COBIAN, at [place], [place] Su WILLSON M.D. ans 2017-07-05 2017-07-05 Appointmen [facility]IN [facility] [id number] Univers 13:30:00 13:30:00 t; KEVIN COBIAN, [place], [place] Su WILLSON M.D. ans Results Test Description Test Time Test Comments Results Result Sour e Comments MRI Spine lumbar 2017-06-18 Study: Spine lumbar [facility] contrast 0 wo contrast [place] [id number] 17:05:00 [facility] Indication: S39.012A Strain of muscle, fascia and tendon of lowerback, initial encounter - S39.012A Strain of muscle, fascia and tendon oflower back, initial encounterComparison: NoneTECHNIQUE: Multiplanar, multisequence magnetic resonance imaging of the lumbarspine was performed without the administration of intravenous gadoliniumcontrast.FI NDINGS:5 nonrib-bearing lumbar vertebra are present. No acute compression fracture orsubluxation is seen. Bone marrow signal is within normal limits for patient'connor. Disc desiccation at L3-L4 is seen with Schmorl's node formation in theanterosuperior L4 endplate. The remaining discs are normal in signal intensityand height. No pars interarticularis defects are seen. The conus terminates atL1. Paravertebral soft tissues are unremarkable.Findings by level:T12-L1: The disc is normal. There is no central or foraminal stenosis. Thefacet joints are unremarkable.L1-L2: The disc is normal. There is no central or foraminal stenosis. Thefacet joints are unremarkable.L2-L3: The disc is normal. Mild facet arthrosis and ligamentum flavumhypertrophy is seen. There is no spinal canal stenosis or neural foraminalnarrowing.L3 -L4: Small annular disc bulge is present. Mild [...] narrowing.The cauda equina and nerve roots are unremarkable.IMPRESSI ON:1. Mild multilevel degenerative changes of the lumbar spine without spinalcanal stenosis or neural foraminal narrowing.SL: [id number]--Nbvm by: Wade Parsons MDDictated Date/time: 07/07/17 07:55Electronically Signed by: Wade Parsons MD 07/07/1708:21FINAL REPORT
[2021-09-01 15:04] LABS: Urine Blood Trace-lysed (Negative); Urine Glucose Negative (Negative); Urine Protein Negative (Negative)
[2021-09-01 15:45] LABS: Absolute Lymphocytes (CBC) 1.7 K/uL (0.7-4.9); Lymphocytes % 33.5 % (15.3-44.8); MPV 7.7 fL (7.6-11.3); RBC Red Blood Cell Count 4.93 M/uL (3.86-4.86)
[2021-09-01 16:00] LABS: Albumin 4.1 g/dL (3.4-5.0); Bilirubin Direct 0.2 mg/dL (0-0.2); Bilirubin Total 1.1 mg/dL (0.2-1.0); Potassium 3.5 mmol/L (3.5-5.1); Protein, Total 7.8 g/dL (6.4-8.2)
[2021-09-01 16:09] LABS: Urine Bacteria 20-50 /HPF (<20); Urine RBC <5 /HPF (NONE SEEN)
--- NOTE | 2021-09-01 16:47 | RAD REPORT ---
EXAM DESCRIPTION: CT - Chest For Pe Angio - 09/01/2021 4:27 pm CLINICAL HISTORY: sob COMPARISON: February 2021 TECHNIQUE: Dynamically enhanced axial 3 mm thick images of the chest were obtained during administra tion of <100> mL Isovue 370 IV contrast. Coronal and oblique reconstruction images were generated and reviewed. Exam utilizes a protocol for optimal evaluation of pulmonary arterial tree. Maximum intensity projections 3D imaging was utilized All CT scans are performed using dose optimization technique as appropriate and may include automated exposure control or mA/KV adjustment according to patient size. FINDINGS: A pulmonary embolus is not seen. A thoracic aortic aneurysm is not noted. A pleural effusion is not seen. A pericardial effusion is not seen. A lung consolidation is not present. Stable subcentimeter right subpleural nodule. Small calcified hilar and mediastinal lymph nodes IMPRESSION: Negative for a pulmonary embolism.
--- NOTE | 2021-09-01 16:52 | RAD REPORT ---
EXAM DESCRIPTION: CT - Abdomen Pelvis W Contrast - 09/01/2021 4:27 pm CLINICAL HISTORY: Abdominal pain COMPARISON: 2020 TECHNIQUE: Computed axial tomography of the abdomen pelvis was obtained. 100 cc Isovue-300 was admin istered intravenously. Oral contrast was not requested which limits evaluation of bowel. All CT scans are performed using dose optimization technique as appropriate and may include automated exposure control or mA/KV adjustment according to patient size. FINDINGS: The liver, spleen, pancreas, adrenal and kidneys appear unremarkable. There is no evidence of diverticulitis. Normal appendix No adnexal mass IMPRESSION: No acute abnormality is displayed.
--- NOTE | 2021-09-01 17:56 | EDPHYS ---
Physician Documentation [facility] Name: Evelin Biggs Age: 20 yrs Sex: Female : 2000 Arrival Date: 09/01/2021 Time: 14:14 Bed 18 Private MD: ED Physician Marcus Dash HPI: 09/01 14:45 This 20 yrs old Female presents to ER via Ambulatory with complaints of Abdominal Pain. cp 14:45 The patient presents with abdominal pain in the lower abdomen. Onset: The cp symptoms/episode began/occurred 4 month(s) ago. The symptoms do not radiate. Associated signs and symptoms: Pertinent positives: shortness of breath, weight gain, Pertinent negatives: blood in stools, constipation, diarrhea, fever. 14:45 Patient reports sensation of mass in lower abdomen. 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 Flu vaccine is not up to date. - Social history:: Smoking status: Patient denies any tobacco usage or history of. ROS: 14:50 Constitutional: Negative for body aches, chills, fever, poor PO intake. cp 14:50 Eyes: Negative for injury, pain, redness, and discharge. cp 14:50 Cardiovascular: Negative for chest pain, edema, palpitations. 14:50 Respiratory: Positive for shortness of breath, on exertion. Negative for cough, wheezing. 14:50 Abdomen/GI: Positive for abdominal pain, of the left lower quadrant, Negative for cp vomiting, diarrhea, constipation, black/tarry stool, rectal bleeding. 14:50 : Negative for urinary symptoms, vaginal bleeding, vaginal discharge. 14:50 Neuro: Negative for altered mental status, dizziness, headache, syncope, weakness. 14:50 All other systems are negative. Exam: 14:55 Constitutional: The patient appears in no acute distress, alert, awake, comfortable, cp non-toxic, well developed, well nourished. 14:55 Head/Face: Normocephalic, atraumatic. cp 14:55 Eyes: Periorbital structures: appear normal, Conjunctiva: normal, no exudate, no cp injection, Sclera: no appreciated abnormality, Lids and lashes: appear normal, bilaterally. 14:55 ENT: External ear(s): are unremarkable, Nose: is normal, Mouth: Lips: moist, Oral cp mucosa: moist, Posterior pharynx: Airway: no evidence of obstruction, patent. 14:55 Neck: ROM/movement: is normal, is supple, without pain, no range of motions limitations.cp 14:55 Chest/axilla: Inspection: normal. cp 14:55 Cardiovascular: Rate: normal, Rhythm: regular. 14:55 Respiratory: the patient does not display signs of respiratory distress, Respirations: normal, no use of accessory muscles, no retractions, labored breathing, is not present, Breath sounds: are clear throughout, no decreased breath sounds, no stridor, no wheezing. 14:55 Abdomen/GI: Inspection: abdomen appears normal, Bowel sounds: active, all quadrants, Palpation: soft, in all quadrants, mild abdominal tenderness, in the left lower quadrant, mass, is not appreciated, of the left lower quadrant, rebound tenderness, is not appreciated, involuntary guarding, is not appreciated. 14:55 Back: pain, is absent, ROM is normal. 14:55 Skin: cellulitis, is not appreciated, no rash present. 14:55 Neuro: Orientation: to person, place \T\ time. Mentation: is normal. Vital Signs: 14:30 BP 135 / 77; Pulse 79; Resp 17; Temp 98.3; Pulse Ox 100% ; Weight 65.32 kg; Height 5 ap3 ft. 9 in. (175.26 cm); 14:30 Body Mass Index 21.26 (65.32 kg, 175.26 cm) ap3 MDM: 14:37 Patient medically screened. cp 15:20 Physician consultation: A Viviana RAMSEY was contacted at 15:20, regarding patient's cp condition, would like further tests performed, CT chest to r/o pulmonary embolism due to patient's complaints of shortness of breath. 15:30 Differential diagnosis: appendicitis, bowel obstruction, non-specific abd pain, Ovarian cp Torsion, Pyelonephritis, Ureterolithiasis, urinary tract infection, intra-abdominal mass. 17:55 Data reviewed: vital signs, nurses notes, lab test result(s), radiologic studies, CT cp scan. 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 Special discussion: Based on the patient's Hx, exam, and Dx evaluation, there is no indication for emergent surgery or inpatient Tx. It is understood by the patient/guardian that if the Sx's persist or worsen they need to return immediately for re-evaluation. 09/01 15:04 Order name: Urine Dipstick-Ancillary; Complete Time: 15:11 EDMS 09/01 15:05 Order name: Basic Metabolic Panel; Complete Time: 16:56 cp 09/01 16:56 Interpretation: Normal except: GFR 82. cp 09/01 15:05 Order name: CBC with Diff; Complete Time: 16:56 cp 09/01 16:56 Interpretation: Normal except: RBC 4.93; MCH 26.4; RDW 15.6. cp 09/01 15:05 Order name: Hepatic Function; Complete Time: 16:56 cp 09/01 16:57 Interpretation: Normal except: BILIT 1.1; GLOB 3.7. cp 09/01 15:05 Order name: Lipase; Complete Time: 16:56 cp 09/01 15:05 Order name: Urine Microscopic Only; Complete Time: 16:56 cp 09/01 16:57 Interpretation: Normal except: UBACT 20-50; SQEPI 5-10. cp 09/01 14:38 Order name: Urine Dipstick-Ancillary (obtain specimen); Complete Time: 15:25 cp 09/01 14:38 Order name: Urine Test (obtain specimen); Complete Time: 15:25 cp 09/01 15:05 Order name: IV Saline Lock; Complete Time: 17:15 cp 09/01 15:05 Order name: Labs collected and sent; Complete Time: 17:15 cp 09/01 15:05 Order name: CT Abd/Pelvis - IV Contrast Only; Complete Time: 16:56 cp 09/01 16:57 Interpretation: Report reviewed. cp 09/01 15:13 Order name: TSH; Complete Time: 16:56 rn 09/01 15:13 Order name: CT Chest For PE Angio; Complete Time: 16:56 rn 09/01 16:58 Interpretation: Report reviewed. cp 09/01 16:09 Order name: Urine Culture EDMS Administered Medications: No medications were administered Disposition Summary: 09/01/21 17:55 Discharge Ordered Location: Home cp Problem: an ongoing problem cp Symptoms: are unchanged cp Condition: Stable cp Diagnosis - Lower abdominal pain, unspecified cp Followup: cp - With: Gustabo Quinteros MD - When: 2 - 3 days - Reason: Recheck today's complaints Discharge Instructions: - Discharge Summary Sheet cp - Abdominal Pain, Adult cp Forms: - Medication Reconciliation Form cp - Thank You Letter cp - Antibiotic Education cp - Prescription Opioid Use cp Prescriptions: - Zofran 4 mg Oral Tablet - take 1 tablet by ORAL route every 12 hours As needed; 20 tablet; Refills: 0, cp Product Selection Permitted - dicyclomine 20 mg Oral Tablet - take 1 tablet by ORAL route 4 times per day; 30 tablet; Refills: 0, Product cp Selection Permitted Signatures: Dispatcher [employer] EDMS Marcus Dash MD MD rn Michael Spivey, PA PA cp Beth Tejada RN RN ap3 Corrections: (The following items were deleted from the chart) 09/02 17:18 09/01 14:45 Associated signs and symptoms: Pertinent positives: weight gain, Pertinent cp negatives: blood in stools, constipation, diarrhea, fever, cp
--- NOTE | 2021-09-01 17:56 | ER ---
Nurse's Notes [facility] Name: Evelin Biggs Age: 20 yrs Sex: Female : 2000 Arrival Date: 09/01/2021 Time: 14:14 Bed 18 Private MD: Diagnosis: Lower abdominal pain, unspecified Presentation: 09/01 14:30 Chief complaint: Patient states: she has been having abdominal pain off and on since ap3 May. Patient reports having a weight gain of 20 pounds since May and having a feeling of a bowling ball in her abdomen. Patient states she was sent by her PCP today for further testing. Coronavirus screen: At this time, the client does not indicate any symptoms associated with coronavirus-19. Ebola Screen: No symptoms or risks identified at this time. Initial Sepsis Screen: Does the patient meet any 2 criteria? No. Patient's initial sepsis screen is negative. Does the patient have a suspected source of infection? No. Patient's initial sepsis screen is negative. Risk Assessment: Do you want to hurt yourself or someone else? Patient reports no desire to harm self or others. Onset of symptoms was May 2021. 14:30 Method Of Arrival: Ambulatory ap3 14:30 Acuity: CALI 3 ap3 Triage Assessment: 14:33 General: Appears in no apparent distress. comfortable, Behavior is calm, cooperative, ap3 appropriate for age. Pain: Complains of pain in abdomen Pain currently is 4 out of 10 on a pain scale. at worst was 6 out of 10 on a pain scale. Pain began gradually, 2-3 months ago. Neuro: Level of Consciousness is awake, alert, obeys commands, Oriented to person, place, time, situation, Appropriate for age Gait is steady, Speech is normal. Cardiovascular: Patient's skin is warm and dry. Respiratory: Airway is patent Respiratory effort is even, unlabored, Respiratory pattern is regular, symmetrical. GI: Abdomen is flat, Reports lower abdominal pain, nausea, vomiting. 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 Flu vaccine is not up to date. - Social history:: Smoking status: Patient denies any tobacco usage or history of. Screenin:34 Abuse screen: Denies threats or abuse. Nutritional screening: Had unintentional weight ap3 gain of 10 pounds or more. Tuberculosis screening: No symptoms or risk factors identified. Fall Risk None identified. Assessment: 15:28 General: Appears Behavior is calm, cooperative. Pain: Complains of pain in abdomen. GI: christie Bowel sounds present X 4 quads. Abd is soft and non tender Abd is non tender Reports cramping, Pain is 7 out of 10 on a pain scale. Vital Signs: 14:30 BP 135 / 77; Pulse 79; Resp 17; Temp 98.3; Pulse Ox 100% ; Weight 65.32 kg; Height 5 ap3 ft. 9 in. (175.26 cm); 14:30 Body Mass Index 21.26 (65.32 kg, 175.26 cm) ap3 ED Course: 14:14 Patient arrived in ED. ds1 14:30 Michael Spivey PA is PHCP. cp 14:30 Marcus Dash MD is Attending Physician. cp 14:32 Triage completed. ap3 14:34 Arm band placed on right wrist. ap3 14:37 No provider procedures requiring assistance completed. christie 15:28 Patient has correct armband on for positive identification. Bed in low position. christie 15:34 Inserted saline lock: 20 gauge in right antecubital area, using aseptic technique. christie 16:27 CT Abd/Pelvis - IV Contrast Only In Process Unspecified. EDMS 16:27 CT Chest For PE Angio In Process Unspecified. EDMS 17:55 Gustabo Quinteros MD is Referral Physician. cp 18:07 IV discontinued, intact, Pressure dressing applied. christie Administered Medications: No medications were administered Outcome: 17:55 Discharge ordered by . cp 18:06 Discharged to home christie 18:06 Condition: good 18:06 Discharge instructions given to patient, Prescriptions given X 2. 18:07 Patient left the ED. christie Signatures: Dispatcher [employer] EDNE KingAlexandra cortez ds1 Michael Spivey PA PA cp Prokisch, Amanda, RN RN ap3 Au-StagerCarole RN RN christie Corrections: (The following items were deleted from the chart) 14:40 14:34 Nutritional screening: No deficits noted. rodney ap3
[2021-09-01 18:13] VITALS: BP 135/77; TEMP 98.3; O2SAT 100
== END 2021-09-01 18:07 | disposition home or self-care (01) ==
LOC: ER 14:12
DX: R10.32 Left lower quadrant pain (principal); F41.8 Other specified anxiety disorders; Z88.5 Allergy status to narcotic agent
CPT/HCPCS: 87088; 85025; 87086; 80048; 36415; 80076; 84443; 83690; 71275; 74177; Q9967; 81003; 81015; 99283